=== PATIENT | female | born 1940 | race Caucasian/White ===

== ENCOUNTER → 2016-09-20 | Day surgery (SDC) | payer OTHER ==
[~2016-09-20] VITALS: Ht 162.6 cm; Wt 65.3 kg
[~2016-09-20] MED LIST: ADVAIR HFA 115/1 PUF INH; ASPIRIN CHILDRE81 MG PO; CALCIUM + D 6001 TAB PO; CIPROFLOXACIN500 MG PO; CORDARONE 200M200 MG PO; MIRALAX17 GM PO; PERCOCET 325 MG1 TA2 PO; PREDNISONE 1 MG1 MG PO; SENNA CON/DOCUS1 TAB PO; SPIRIVA 18 MCG18 MCG INH; SYMBICORT 16010.2 GM INH; TAMOXIFEN CITRA20 MG PO; VITAMIN D31000 I1 PO
--- NOTE | 2016-09-24 18:41 | Operative Report ---
Operative/Inv Procedure Report Surgery Date: 09/20/16 Name of Procedure: D&C hysteroscopy Pre-Operative Diagnosis: Postmenopausal bleeding tamoxifen use Post-Operative Diagnosis: Same Estimated Blood Loss: scant Surgeon/Construction Consultant: JENNIFER TOMLINSON MD Anesthesia: moderate sedation Operative/Procedure Note Note: Patient was taken to the operating room placed in dorsal supine position. After adequate anesthesia, patient was prepped and draped for surgery. Examination under anesthesia was performed. CO2 tenaculum was placed on the anterior lip of the cervix gentle downward traction was used. The cervix was dilated 29 Hegar to left insertion of the hysteroscope. Under direct visualization to hysteroscopy was performed using gas hysteroscope was removed and endocervical curettage was performed. And endometrial curettage was performed. All instruments removed from the vagina. The counts were correct the patient was awakened from anesthesia. And transported to recovery room awake and alert. Findings: Atrophic lining no adnexal masses normal size uterus
== END ==
LOC: STS 01:19
DX: N95.0 Postmenopausal bleeding (principal); Z79.810 Long term (current) use of selective estrogen receptor modulators (SERMs); Z85.3 Personal history of malignant neoplasm of breast; I10 Essential (primary) hypertension; J44.9 Chronic obstructive pulmonary disease, unspecified; Z87.891 Personal history of nicotine dependence; Z79.82 Long term (current) use of aspirin
CPT/HCPCS: 88305; J2250

== ENCOUNTER → 2017-10-01 | Day surgery (SDC) | payer OTHER ==
[~2017-10-01] VITALS: Ht 162.6 cm; Wt 64.4 kg
[~2017-10-01] MED LIST changes: +ASPIRIN EC81 M1 PO; +CALCIUM 500 +1 EAC5 PO; +CYCLOBENZAPRINE5 M2 PO; +IBUPROFEN600 M1 PO; +PREDNISONE1 MG PO; -SPIRIVA 18 MCG18 MCG INH; +SPIRIVA18 MCG INH; +TAMOXIFEN CITRA20 M1 PO; -TAMOXIFEN CITRA20 MG PO; +VENTOLIN HFA18 GM INH
--- NOTE | 2017-10-03 10:25 | Operative Report ---
Operative/Inv Procedure Report Surgery Date: 10/01/17 Name of Procedure: cysto: TURBT; Mitomycin bladder instillation in RR Pre-Operative Diagnosis: recurrent bladder cancer Post-Operative Diagnosis: same Estimated Blood Loss: less than 50ml Surgeon/Materials Manager: Toy Solis MD Anesthesia: laryngeal mask airway Drains: 18fr -for mitomycin instillation Specimens: bladder tumor Complications: none Operative/Procedure Note Note: The patient was taken to the operating room, and placed on the OR table in supine position. Timeout was performed, with the patient awake, to confirm correct patient, procedure, anesthesia, antibiotics, and other pertinent gordon- operative information. After adequate anesthesia and antibiotics, the patient was then placed in lithotomy stirrups, draped and prepped in usual surgical fashion. A 26 Malian resectoscope sheath with a 30 angle lens, and 24 Malian loop, was inserted into the urethra, and advanced into the bladder without difficulty. Upon entering the bladder, the bladder was noted to be mildly trabeculated. Both ureteral orifices were in their orthotopic position, with clear reflux bilaterally. A solitary 0.5 Cm papillary lesion was visualized on the left lateral wall of the bladder, consistent with tumor. No other tumors were seen on thorough and systematic surveillance. Under direct visualization, this 0.5 cm papillary lesion was resected from superficial to deeper layers, including partial detrusor muscle base resection. The entire tumor was removed, along with a 0.5 cm margin of normal mucosa. The tumor fragments were evacuated, and sent to pathology. Cauterization of the base of the tumor resection was performed, in order to achieve good hemostasis. The bladder was copiously irrigated once again with 3 L of sorbitol. The resectoscope was removed leaving the bladder full. The bladder was drained by placing a 16 Malian Kruger catheter , without difficulty, and with clear fluid. 10 mL of sterile water was placed in the balloon, and the Kruger catheter was plugged after complete decompression of the bladder. The patient tolerated procedure well was then taken to recovery room in satisfactory condition. In the recovery room, Mitomycin 40mg in 40cc sterile saline, was instilled into the bladder using the indwelling 16fr catheter. The Kruger was clamped, for one hour, with the pt turned from [id number] every 15minutes, during mitomycin instillation. The patient tolerated this part of the procedures well, the catheter was removed for the pt. to void. The patient tolerated both procedures well and discharged withpain meds, and antibiotics. The patient is scheduled for follow-up in the office in 2 weeks time. Discharge Disposition: PACU CC: Toy Solis MD
== END ==
LOC: STS 02:03
DX: C67.2 Malignant neoplasm of lateral wall of bladder (principal); Z85.51 Personal history of malignant neoplasm of bladder; J44.9 Chronic obstructive pulmonary disease, unspecified
CPT/HCPCS: 93005; 93010; J2250; J9280

== ENCOUNTER 2017-12-04 07:01 | Inpatient (IN) | payer OTHER ==
[~2017-12-04] VITALS: Ht 162.6 cm; Wt 66.2 kg
--- NOTE | 2017-12-04 07:17 | ED DYSPNEA/ASTHMA COMPLAINT ---
History of Present Illness General Chief Complaint: Dyspnea (COPD, CHF, Other) Stated Complaint: DIFF BREATHING Source: patient, family, old records, EMS Exam Limitations: no limitations Vital Signs & Intake/Output Vital Signs & Intake/Output Vital Signs Date Time Temp Pulse Resp B/P B/P Pulse O2 O2 Flow FiO2 Mean Ox Delivery Rate 12/04 0753 99.9 120 18 160/70 96 Non 100% ReBreather 12/04 0732 99.6 126 28 155/80 96 Non 10L ReBreather 12/04 0723 95 Non 100% ReBreather Allergies Coded Allergies: NO KNOWN ALLERGIES (NONE 09/30/17) NKA PER ANTIBIOTIC ORDER SHEET OF 01/15/13 - [facility] Reconcile Medications Albuterol Sulfate (Ventolin Hfa) 90 MCG HFA.AER.AD 2 PUF INH Q4-6 PRN PRN SHORTNESS OF BREATH Aspirin (Ecotrin*) 81 MG TABLET.DR 1 TAB PO DAILY HEART/BLOOD (Reported) Budesonide/Formoterol Fumarate (Symbicort 160-4.5 Mcg Inhaler) 160 MCG-4.5 MCG/ ACTUATION HFA.AER.AD 2 PUF INH BID COPD (Reported) Calcium Carbonate/Vitamin D3 (Calcium 500 + D Tablet) (Unknown Strength) TABLET (Unknown Dose) PO DAILY SUPPLEMENT (Reported) Prednisone 1 MG TABLET 4 MG PO DAILY STEROID (Reported) Tamoxifen Citrate 20 MG TABLET 1 TAB PO DAILY BREAST CANCER (Reported) Tiotropium Dundee (Spiriva) 18 MCG CAP.W.DEV 1 CAP INH DAILY COPD (Reported) Triage Nurses Notes Reviewed? yes HPI: Patient presents with increasing shortness of breath since last night. Patient states that she was unable to sleep all night secondary to her breathing. She does not know about orthopnea. She is to recliner and almost upright position for the majority tonight. Patient does not have a history of congestive heart failure. Patient states that yesterday she was running a low-grade fever of 100.4. She's had a productive cough which is slightly worse than her chronic underlying cough. Patient is currently on low-dose steroids secondary to polymyalgia rheumatica. Patient denies any chest pain or palpitations. She does have anorexia. Past History Travel History Traveled to [place] past 21 day No Medical History Any Pertinent Medical History? see below for history Neurological: NONE EENT: NONE Cardiovascular: NONE Respiratory: COPD Gastrointestinal: NONE Hepatic: NONE Renal: NONE Musculoskeletal: NONE, POLYMYALGIA RHEUMATICA Psychiatric: NONE Endocrine: NONE Blood Disorders: NONE Cancer(s): bladder cancer, hx breast ca L '13- lumpectomy, radiation JANITORIAL TECH/Reproductive: NONE Other Medical Hx: PMR History of MRSA: No History of VRE: No History of CDIFF: No Surgical History Surgical History: BLADDER SURG FOR CA Lumpectomy on L side, deviated septum, cataract surgery Psychosocial History Who do you live with Patient/Self Services at Home None What is your primary language [place] Tobacco Use: Quit >30 days ago ETOH Use: denies use Illicit Drug Use: denies illicit drug use Family History Family History, If Any: Relation not specified for: *No pertinent family history Hx Contributory? No Review of Systems Review of Systems Constitutional: Reports: no symptoms. EENTM: Reports: no symptoms. Respiratory: Reports: see HPI, cough, orthopnea, short of breath, wheezing. Cardiovascular: Reports: no symptoms. GI: Reports: see HPI (ANOREXIA). Genitourinary: Reports: no symptoms. Musculoskeletal: Reports: no symptoms. Skin: Reports: no symptoms. Neurological/Psychological: Reports: see HPI, anxiety. Hematologic/Endocrine: Reports: no symptoms. Immunologic/Allergic: Reports: no symptoms. All Other Systems: Reviewed and Negative Physical Exam Physical Exam General Appearance: well developed/nourished, alert, awake, anxious, severe distress Head: atraumatic, normal appearance Eyes: Bilateral: PERRL, EOMI. Ears, Nose, Throat: normal pharynx, normal ENT inspection, hearing grossly normal Neck: normal inspection, supple, full range of motion, JVD Respiratory: decreased breath sounds, accessory muscle use, wheezing, rales, respiratory distress Cardiovascular: regular rate/rhythm, normal peripheral pulses Gastrointestinal: normal bowel sounds, soft, non-tender, no organomegaly Extremities: normal inspection, normal capillary refill, normal range of motion, no edema Neurologic/Psych: no motor/sensory deficits, awake, alert, oriented x 3, normal mood/affect Skin: intact, normal color, warm/dry Lymphatic: no anterior cervical riri Core Measures ACS in differential dx? No CVA/TIA Diagnosis No Sepsis Present: No Sepsis Focused Exam Completed? No Progress Differential Diagnosis: asthma, AMI, bronchitis, CHF, COPD, pulmonary embolism, pneumonia, pneumothorax Plan of Care: Orders Procedure Date/time Status Heart Healthy Diet 12/04 L Active LACTIC ACID 12/04 1015 Active ED Holding Orders 12/05 827 Active Admit to inpatient 12/05 827 Active Vital Signs 12/05 827 Active Code Status 12/05 827 Active ARTERIAL BLOOD GAS (GEN) 12/04 714 Active Telemetry/Systems Mgr 12/04 714 Active BLOOD CULTURE 12/04 714 Active URINALYSIS 12/04 714 Active TROPONIN LEVEL 12/04 714 Complete LACTIC ACID 12/04 714 Complete COMPREHENSIVE METABOLIC PANEL 12/04 714 Complete CBC WITHOUT DIFFERENTIAL 12/04 714 Complete B-TYPE NATRIURETIC PEP (BNP) 12/04 714 Complete EKG 12/05 703 Active Laboratory Tests 12/04/17715: Anion Gap 8, Estimated GFR > 60, BUN/Creatinine Ratio 21.1, Glucose 139 H, Lactic Acid 1.1, Calcium 9.5, Total Bilirubin 0.5, AST 34, ALT 37, Alkaline Phosphatase 72, Troponin I < 0.01, Lik-N-Wcsuwifwcpv Pept 360 H, Total Protein 6.8, Albumin 3.9, Globulin 2.9, Albumin/Globulin Ratio 1.3, CBC w Diff MAN DIFF ORDERED, RBC 5.16, MCV 87.2, MCH 29.5, MCHC 33.8, RDW 13.9, MPV 7.0 L, Gran % 74.2, Lymphocytes % 19.4 L, Monocytes % 5.4, Eosinophils % 0.7, Basophils % 0.3 , Absolute Granulocytes 12.6 H, Segmented Neutrophils 81 H, Absolute Lymphocytes 3.3, Lymphocytes 13 L, Monocytes 6, Absolute Monocytes 0.9 H, Absolute Eosinophils 0.1, Absolute Basophils 0, Platelet Estimate VERIFIED BY SMEAR, Normocytic RBCs VERIFIED, Normochromic RBCs VERIFIED 12/04/17714: pH 7.34 L, pCO2 43, pO2 88, HCO3 22, ABG O2 Sat (Measured) 94.0 L, P-50 (Temp Corrected) N, Carboxyhemoglobin 1.2 L, O2 Concentration % 7L, O2 Delivery Method NEB TX, Phlebotomy Draw Site LEFT RADIAL Microbiology 12/04 724 BLOOD: Blood Culture - RECD 12/04 709 BLOOD: Blood Culture - RECD Diagnostic Imaging: Viewed by Me: Radiology Read. Discussed w/RAD: Radiology Read. CXR Impression: PATIENT: JAD RILEY PRESENT AGE: 77 PATIENT ACCOUNT NO: [id number] : 40 LOCATION: [facility] ORDERING PHYSICIAN: Rafa King MD SERVICE DATE: 12/04/17 EXAM TYPE: RAD - XRY-PORTABLE CHEST XRAY EXAMINATION: XR PORTABLE CHEST CLINICAL INFORMATION: Pulmonary edema versus pneumonia COMPARISON: 05/30/2017 TECHNIQUE: Portable frontal view of the chest was obtained. FINDINGS: Cardiac leads overlie the chest. The lungs are well expanded. Oligemia of the upper lungs is consistent with known emphysema. There is no focal consolidation, edema, or effusion. Focal opacity at the peripheral right lung base likely associated with calcification of the costochondral cartilage as seen on prior CT. No pneumothorax. The cardiomediastinal silhouette is within normal limits. No acute osseous abnormality. IMPRESSION: There is known emphysema. No edema. No consolidation. DICTATED BY: Alexandre Dupree MD DATE/TIME DICTATED:12/04/17751 EDITOR:DANIKA DATE/TIME TRANSCRIBED:12/04/17751 CONFIDENTIAL, DO NOT COPY WITHOUT APPROPRIATE AUTHORIZATION. <Electronically signed in Other Vendor System> SIGNED BY: Alexandre Dupree MD 12/04/17756 Initial ED EKG: sINUS TACHYCARDIA AT 126, NONSPECIFIC st-t CHANGES NOTED CHANGES EXCEPT FOR RATE FROM PRIOR ekg. Prior EKG: unchanged Rhythm Strip: sinus tachycardia Comments: The ABGs was no evidence of hypercarbic respiratory failure she is slightly hypoxic given the amount of oxygen she is on. Holding off On aggressive hydration given the fact that she has had orthopnea and she has rales on exam. Awaiting the chest x-ray and the BNP. Departure Departure Disposition: STILL A PATIENT Condition: Fair Clinical Impression Primary Impression: COPD exacerbation Referrals: Dilip HAIDER,Reddy Alaniz (PCP/Family) Departure Forms: Customer Survey General Discharge Information Admission Note Spoke With: Nina Ellsworth MD Documentation of Exam: Documentation of any treatments & extenuating circumstances including Concerns Regarding Discharge (functional status, medication knowledge or non-compliance, living conditions, etc.) that warrant an admission rather than observation: [IV antibiotics, IV steroids, pulmonary consultation, respiratory treatments, nebulizers, if patient becomes fatigued she may require BiPAP] Critical Care Note Critical Care Note Critical Care Time: mins: (90 MIN)
[2017-12-04 07:24] LABS: ABSOLUTE BASOPHIL COUNT 0 /CUMM (0.0-0.2); ABSOLUTE EOSINOPHIL COUNT 0.1 /CUMM (0.0-0.7); ABSOLUTE GRANULOCYTE CT 12.6 /CUMM (1.4-6.5); ABSOLUTE LYMPH COUNT 3.3 /CUMM (1.2-3.4); ABSOLUTE MONOCYTE COUNT 0.9 /CUMM (0.10-0.60); BASOPHIL % 0.3 % (0.0-2.0); EOSINOPHIL % 0.7 % (0-5); GRANULOCYTE % 74.2 % (42.2-75.2); HEMATOCRIT 44.9 % (37-47); MEAN CORPUSCULAR HGB 29.5 PG (27.0-31.0); MEAN CORPUSCULAR HGB CONC 33.8 G/DL (33.0-37.0); MEAN CORPUSCULAR VOLUME 87.2 FL (81.0-99.0); PLATELET COUNT 375 /CUMM (130-400); RBC DISTRIBUTION WIDTH 13.9 % (11.5-14.5); RED BLOOD CELL CT 5.16 /CUMM (4.20-5.40); WHITE BLOOD CELL COUNT 16.9 /CUMM (4.8-10.8)
--- NOTE | 2017-12-04 07:57 | RADIOLOGY REPORT ---
EXAMINATION: XR PORTABLE CHEST CLINICAL INFORMATION: Pulmonary edema versus pneumonia COMPARISON: 05/30/2017 TECHNIQUE: Portable frontal view of the chest was obtained. FINDINGS: Cardiac leads overlie the chest. The lungs are well expanded. Oligemia of the upper lungs is consistent with known emphysema. There is no focal consolidation, edema, or effusion. Focal opacity at the peripheral right lung base likely associated with calcification of the costochondral cartilage as seen on prior CT. No pneumothorax. The cardiomediastinal silhouette is within normal limits. No acute osseous abnormality. IMPRESSION: There is known emphysema. No edema. No consolidation.
--- NOTE | 2017-12-04 08:48 | History & Physical ---
Phoebe Arcos 12/04/17 0847: General Information and HPI MD Statement: I have seen and personally examined JAD KEYS and documented this H &P. The patient is a 77 year old F who presented with a patient stated chief complaint of [sob]. Source of Information: patient Exam Limitations: no limitations History of Present Illness: Mrs Keys is a 77-year-old female with past medical history of polymyalgia rheumatica on chronic prednisone, COPD not on home oxygen, bladder cancer status post resection 2 and currently on mitomycin (6 out of 8 shots given), prior history of breast cancer status post lumpectomy and radiation on tamoxifen came in today with chief complaint of worsening shortness of breath the night prior to presentation. Apparently, she was having some symptoms of cold and cough since 2 days prior to today's presentation, she had congestion in her nose along with some irritation in the ear and and headache, however the night prior to admission she started to have worsening shortness of breath after awakening from sleep, she tried her inhalers but they did not help and this is when she was brought in by ambulance to [facility] emergency department. On arrival her saturations were found to be 70 %, initially she was placed on 10 L, however then she was shortly placed on nonrebreather for a while. She denied any orthopnea, paroxysmal nocturnal dyspnea, edema, productive cough, any sick contacts, nausea, vomiting, diarrhea, constipation. She did report having low-grade fever the night prior to presentation and she measured to be 100.4. Of note she is on low-dose steroids for polymyalgia rheumatica. Allergies/Medications Allergies: Coded Allergies: NO KNOWN ALLERGIES (NONE 09/30/17) NKA PER ANTIBIOTIC ORDER SHEET OF 01/15/13 - [facility] Home Med list Albuterol Sulfate (Ventolin Hfa) 90 MCG HFA.AER.AD 2 PUF INH Q4-6 PRN PRN SHORTNESS OF BREATH Aspirin (Ecotrin*) 81 MG TABLET.DR 1 TAB PO DAILY HEART/BLOOD (Reported) Budesonide/Formoterol Fumarate (Symbicort 160-4.5 Mcg Inhaler) 160 MCG-4.5 MCG/ ACTUATION HFA.AER.AD 2 PUF INH BID COPD (Reported) Calcium Carbonate/Vitamin D3 (Calcium 500 + D Tablet) (Unknown Strength) TABLET (Unknown Dose) PO DAILY SUPPLEMENT (Reported) Prednisone 1 MG TABLET 1 MG PO DAILY STEROID (Reported) Tamoxifen Citrate 20 MG TABLET 1 TAB PO DAILY BREAST CANCER (Reported) Tiotropium [place] (Spiriva) 18 MCG CAP.W.DEV 1 CAP INH DAILY COPD (Reported) Compliance With Home Meds: FAIR Past History Travel History Traveled to [place] past 21 day No Medical History Neurological: NONE EENT: NONE Cardiovascular: NONE Respiratory: COPD Gastrointestinal: NONE Hepatic: NONE Renal: NONE Musculoskeletal: NONE, POLYMYALGIA RHEUMATICA Psychiatric: NONE Endocrine: NONE Blood Disorders: NONE Cancer(s): bladder cancer, hx breast ca L '13- lumpectomy, radiation BUSINESS REPORTING DEVELOPER/Reproductive: NONE Other Medical Hx: PMR History of MRSA: No History of VRE: No History of CDIFF: No Surgical History Surgical History: BLADDER SURG FOR CA Lumpectomy on L side, deviated septum, cataract surgery ECHO Results (as available) Date of last Echo 09/24/14 EF% 60 Past Family/Social History Family History Relations & Conditions if any Relation not specified for: *No pertinent family history Psychosocial History Where do you live? Home Who Do You Live With? self Services at Home: None Primary Language: Turkish Smoking Status: Former Smoker ETOH Use: occasional use Illicit Drug Use: denies illicit drug use Functional Ability ADLs Independent: dressing, eating, toileting, bathing. Ambulation: independent IADLs Independent: shopping, housework, finances, food prep, telephone, transportation , medication admin. Review of Systems Review of Systems Constitutional: Reports: see HPI. EENTM: Denies: blurred vision, double vision, visual changes, eye pain. Cardiovascular: Reports: orthopena. Denies: chest pain, edema, palpitations, peripheral edema, syncope. Respiratory: Reports: short of breath, sputum production, wheezing. Denies: cough, hemoptysis, stridor. GI: Denies: abdominal pain, bloating, constipation, diarrhea. Genitourinary: Denies: discharge, dysuria, frequency, hematuria. Musculoskeletal: Reports: no symptoms. Exam & Diagnostic Data Last 24 Hrs of Vital Signs/I&O Vital Signs Date Time Temp Pulse Resp B/P B/P Pulse O2 O2 Flow FiO2 Mean Ox Delivery Rate 12/04 0900 99.0 102 24 111/51 96 Non 10L ReBreather 12/04 0753 99.9 120 18 160/70 96 Non 10L ReBreather 12/04 0732 99.6 126 28 155/80 96 Non 10L ReBreather 12/04 0723 95 Non 100% ReBreather Intake & Output 12/04 1600 12/04 0800 12/04 0000 Intake Total Output Total Balance Patient 64.41 kg Weight Weight Reported by Patient Measurement Method Physical Exam General Appearance Alert, Oriented X3, Cooperative Skin No Rashes, No Breakdown, multiple small pinkish macules over b/l hands, chronic HEENT Atraumatic, PERRLA, EOMI Neck Supple, No JVD, mild redness noted in orpharynx Cardiovascular Regular Rate, Normal S1, Normal S2, No Murmurs Lungs Clear to Auscultation, Normal Air Movement Abdomen Normal Bowel Sounds, Soft, No Tenderness Extremities No Clubbing, No Cyanosis, No Edema, Normal Pulses Vascular Normal Pulses Last 24 Hrs of Labs/[place]: Laboratory Tests 12/04/17 0716: Anion Gap 8, Estimated GFR > 60, BUN/Creatinine Ratio 21.1, Glucose 139 H, Lactic Acid 1.1, Calcium 9.5, Total Bilirubin 0.5, AST 34, ALT 37, Alkaline Phosphatase 72, Troponin I < 0.01, Wzi-G-Quzngenuajw Pept 360 H, Total Protein 6.8, Albumin 3.9, Globulin 2.9, Albumin/Globulin Ratio 1.3, CBC w Diff MAN DIFF ORDERED, RBC 5.16, MCV 87.2, MCH 29.5, MCHC 33.8, RDW 13.9, MPV 7.0 L, Gran % 74.2, Lymphocytes % 19.4 L, Monocytes % 5.4, Eosinophils % 0.7, Basophils % 0.3 , Absolute Granulocytes 12.6 H, Segmented Neutrophils 81 H, Absolute Lymphocytes 3.3, Lymphocytes 13 L, Monocytes 6, Absolute Monocytes 0.9 H, Absolute Eosinophils 0.1, Absolute Basophils 0, Platelet Estimate VERIFIED BY SMEAR, Normocytic RBCs VERIFIED, Normochromic RBCs VERIFIED 12/04/17714: pH 7.34 L, pCO2 43, pO2 88, HCO3 22, ABG O2 Sat (Measured) 94.0 L, P-50 (Temp Corrected) N, Carboxyhemoglobin 1.2 L, O2 Concentration % 7L, O2 Delivery Method NEB TX, Phlebotomy Draw Site LEFT RADIAL Microbiology 12/04 724 BLOOD: Blood Culture - RECD 12/04 709 BLOOD: Blood Culture - RECD Diagnostic Data EKG Results Sinus tachycardia, rate of 126, QTC of 452. CXR Results chest x-ray showed known emphysema however no overt edema or consolidation was seen. Assessment/Plan Assessment: In summary Mrs Keys is a 77-year-old female with past medical history of polymyalgia rheumatica on chronic prednisone, COPD not on home oxygen, bladder cancer status post resection 2 and currently on mitomycin (6 out of 8 shots given), prior history of breast cancer status post lumpectomy and radiation on tamoxifen came in today with chief complaint of worsening shortness of breath the night prior to presentation. Her vitals on presentation were T-max of 99.6, heart rate of 126, blood pressure 155/80, she was saturating 96% on nonrebreather. White count of 16.9, H/H of 15.2/44.9, platelet 375. Sodium of 135, potassium 4.7, BUN/creatinine 19/0.9, glucose of 139, liver function tests within normal limits, troponin I negative, lactic acid less than 2, calcium of 9.5 proBNP of 360. Chest x-ray did not show any acute cardiopulmonary process other than previous emphysema. EKG showed sinus tachycardia with a rate of 126. Initially when she presented she was hypoxic to 70%, which gradually improved after placing her on nonrebreather after initial high flow oxygen. We will admit her to cardiac telemetry floor for further management of her COPD exacerbation and continuous pulse oximetry. Problem list along with assessment and plan. 1. Acute hypoxic failure secondary to COPD exacerbation. * Continue to monitor vitals, continue oxygen to maintain saturations above 92%, [facility] evaluation, she received IV methylprednisolone while at the emergency department, continue IV methylprednisolone 40 mg every 6, she received 1 time of IV ceftriaxone and azithromycin, can continue azithromycin for 2 more days, please send sputum cultures if she is able to bring up cough, continue cardiac telemetry monitoring, continue chest physical therapy, continue spirometry. 2. Leucocytosis * Most likely seems to be secondary to chronic steroid therapy * She is afebrile, chest x-ray is negative for any findings of pneumonia, vitals are stable other than tachycardia which could be secondary to her COPD and nebulization treatment itself. * For now we will continue to follow the white count, blood culture and sputum cultures, if any overt signs of infection develop, then will consider draining it, currently continue azithromycin for COPD exacerbation. 3. history of bladder cancer on mitomycin * Received 6 out of 8 total doses. * Had another appointment today for next dose of mitomycin, has tolerated chemotherapy well previously. 4. History of breast cancer status post lumpectomy/radiation. * Continue tamoxifen 5. history of polymyalgia rheumatica * And is currently on IV methylprednisolone for COPD exacerbation. * On discharge continue home dose of chronic prednisone. * Follows with Dr. Benavides at the outpatient 6. Continue aspirin at home dosage Full code. Heart healthy diet. Pain pathway. DVT prophylaxis with Lovenox. As Ranked By This Provider Problem List: 1. COPD exacerbation Core Measures/Misc (12/30) Acute Coronary Syndrome ACS Diagnosis: No Congestive Heart Failure Congestive Heart Failure Diagnosis No Cerebrovascular Accident CVA/TIA Diagnosis: No VTE (View Protocol) VTE Risk Factors No risk factors No Mechanical VTE Prophylaxis d/t Other No VTE Pharm Prophylaxis d/t Other Sepsis (View protocol) Sepsis Present: No If YES complete Sepsis Event Note If YES complete Sepsis Event Note Sree Davis MD 12/04/17 1156: Core Measures/Misc (12/30) Sepsis (View protocol) If YES complete Sepsis Event Note If YES complete Sepsis Event Note Attending MD Review Statement Attending Statement Attending MD Statement: examined this patient, discuss w/resident/PA/TOMBSTONE ERECTOR HELPER, agreed w/resident/PA/TOMBSTONE ERECTOR HELPER, reviewed EMR data (avail) Attending Assessment/Plan: 77F PMH polymyalgia rheumatica on chronic prednisone, COPD not on home oxygen, bladder cancer status post resection 2 and currently on mitomycin (6 out of 8 shots given), prior history of breast cancer status post lumpectomy and radiation on tamoxifen presenting with 2 days of URI symptoms leading to severe shortness of breath on arrival to ER, required NRB mask, given nebulizers and steroids with improvement. Now breathing quietly and comfortably on 2L, feels much better, still wheezing, CXR negative, no evidence of CHF. 1. COPD Exacerbation 2. Acute bronchitis 3. Acute hypoxemic respiratory failure Plan - Admit to general medicine - Solumedrol 40mg q8h - Nebulizer treatments - Sputum culture - Titrate down oxygen as tolerated - Continue home medications - DVT PPx
--- NOTE | 2017-12-04 11:34 | PN- Housestaff ---
Subjective Follow-up For: COPD exacerbation, Acute hypoxic respiratory failure, Review of Systems Constitutional: Reports: see HPI. Assessment/Plan Assessment: 77-year-old female with past medical history of polymyalgia rheumatica(on prednisone), COPD, bladder cancer status post resection and on mitomycin, prior history of breast cancer status post lumpectomy and radiation(currently on tamoxifen) presented emergency department with chief complaint of worsening shortness of breath since one day. At the time of presentation to the emergency department her vitals, T: 99.6, HR: 126, BP: 155/80, SaO2: 96% on nonrebreather, Her labs were significant for for WBC:16.9, Hb/Hct:15.2/46.9, Platlets 375, LFTs are with normal limit, BEP is WNML. Chest X-ray: showing no new changes same previous emphysematous changes. EKG:sinus tachycardai Problems list: *Acute hypoxic respiratory failure secondary to COPD exacerbation: *Leukocytosis *Hx of bladder cancer *Hx of Polymyalgia rheumatica/ Hx of braest cancer post lumpectomy on raloxafen *Acute hypoxic failure secondary to COPD exacerbation
[2017-12-04 15:48] VITALS: BP 160/72
[2017-12-04 21:34] VITALS: BP 138/68
[2017-12-05 05:52] VITALS: BP 120/64
--- NOTE | 2017-12-05 07:09 | PN- Housestaff ---
Marcus Vazquez 12/05/17 0709: Subjective Follow-up For: COPD Exacerbation Tachycardia Subjective: She is currently on 5L oxygen. No events overnight and no events on telemetry. She denies any new complaints. Looks to be in mild distress from her respiratory rate. Review of Systems Constitutional: Reports: see HPI. Objective Last 24 Hrs of Vital Signs/I&O Vital Signs Date Time Temp Pulse Resp B/P B/P Pulse O2 O2 Flow FiO2 Mean Ox Delivery Rate 12/06 0131 94 Nasal 60% Cannula 12/05 2245 94 Nasal 55% Cannula 12/05 2200 Nasal 55% Cannula 12/05 2139 97.9 92 22 128/58 96 Nasal Cannula 12/05 2036 94 Nasal 55% Cannula 12/05 1710 95 Nasal 55% Cannula 12/05 1449 98.7 106 24 138/64 92 Nasal 5.0L Cannula 12/05 0819 92 Nasal 5.0L Cannula 12/05 0800 Nasal 5.0L Cannula 12/05 0552 97.9 90 22 120/64 90 Nasal 4.0L Cannula Intake & Output 12/06 0800 12/06 0000 12/05 1600 Intake Total 300 535 Output Total 400 Balance 300 135 Intake, IV 35 Intake, Oral 300 500 Output, Urine 400 Physical Exam General Appearance: Alert, Oriented X3, Cooperative, Mild Distress Skin: erythematic Skin Temp/Moisture Exam: Warm/Dry HEENT: Atraumatic, EOMI Neck: Supple, No JVD Cardiovascular: Regular Rate, Normal S1, Normal S2 Lungs: Clear to Auscultation, Decreased sounds Abdomen: Normal Bowel Sounds, Soft, No Tenderness Assessment/Plan Assessment: Mrs Keys is a 77-year-old female with past medical history of polymyalgia rheumatica on chronic prednisone, COPD not on home oxygen, bladder cancer status post resection 2 and currently on mitomycin (6 out of 8 shots given), prior history of breast cancer status post lumpectomy and radiation on tamoxifen. Presented to ED with chief complaint of worsening shortness of breath the night prior to presentation. Apparently, she was having some symptoms of cold and cough since 2 days prior to today's presentation along with congestion in her nose, irritation in the ear, and headache. She tried her inhalers but they did not help and was BIBA to [facility] emergency department. On arrival her saturations were found to be 70%, initially she was placed on 100% Fi O2. #COPD Exacerabtion - Pulmonary recs appreciated - Solumedrol Q8 - DuoNeb Q6 - Hold Symbicrot and Spiriva - Change Steroids to 60mg prednisone tmrw - DC Azithromycin - Cont IV ceftriaxone (recommended abx for her stage of COPD exacerbation with suspected bacterial etiology) #Tachycardia - Check D Dimer to R/O PE - Check lower ext BL doppler - Resolved #Leukocytosis - Most likely related to chronic steroid use for PMR DVT ppx Full code Problem List: 1. COPD exacerbation Pain Ratin Pain Location: na Pain Goal: Remain pain free Pain Plan: per pathway Tomorrow's Labs & Rationales: CBC, BEP Selam HAIDER,Melba 12/05/17 1110: Attending MD Review Statement Attending Statement Attending MD Statement: examined this patient, discuss w/resident/PA/COMMUNICATIONS ENGINEERING TECHNICIAN, agreed w/resident/PA/COMMUNICATIONS ENGINEERING TECHNICIAN, reviewed EMR data (avail), discussed with nursing, discussed with case mgmt, amended to note Attending Assessment/Plan: Patient seen and examined. Initially admitted to the general medical floor but transferred to telemetry unit on account of tachycardia. Likely related to her COPD flareup. She reports feeling better compared to presentation but still visibly short of breath at rest. She was on 100% FiO2 on presentation but has been weaned down gradually to 5 L of oxygen via nasal cannula. She denies chest pain or palpitations. On examination no use of accessory muscles. She has fair entry bilaterally with diffuse rhonchi. Heart sounds are regular. Abdomen soft and nontender. No peripheral edema. Problems: 1. Acute hypoxic respiratory failure 2. COPD exacerbation 3. Tachycardia Plan: -Oxygen requirement is improving. Continue bronchodilator therapy. Continues Solu-Medrol. Decrease dose down to every 8 hours. Pulmonary consultation. -Mobilize patient as tolerated. -Tachycardia has resolved. Discontinue telemetry monitoring. -Check d-dimer. If elevated given a history of malignancy will consider CT angiogram in addition to rule out pulmonary embolism given the degree of her hypoxemia on presentation. -Leukocytosis on presentation was likely related to her chronic steroid therapy. -Repeat serum chemistry and CBCs in a.m. if there is a change in her clinical status. status.
[2017-12-05 08:09] LABS: ABSOLUTE BASOPHIL COUNT 0 /CUMM (0.0-0.2); ABSOLUTE EOSINOPHIL COUNT 0 /CUMM (0.0-0.7); ABSOLUTE GRANULOCYTE CT 14.3 /CUMM (1.4-6.5); ABSOLUTE LYMPH COUNT 0.8 /CUMM (1.2-3.4); ABSOLUTE MONOCYTE COUNT 0.1 /CUMM (0.10-0.60); BASOPHIL % 0 % (0.0-2.0); EOSINOPHIL % 0 % (0-5); HEMATOCRIT 42.1 % (37-47); MEAN CORPUSCULAR HGB 29.2 PG (27.0-31.0); MEAN CORPUSCULAR HGB CONC 33.2 G/DL (33.0-37.0); MEAN CORPUSCULAR VOLUME 87.9 FL (81.0-99.0); MEAN PLATELET VOLUME 7.6 FL (7.4-10.4); PLATELET COUNT 338 /CUMM (130-400); RBC DISTRIBUTION WIDTH 14.1 % (11.5-14.5); RED BLOOD CELL CT 4.79 /CUMM (4.20-5.40); WHITE BLOOD CELL COUNT 15.3 /CUMM (4.8-10.8)
[2017-12-05 09:19] LABS: GRANULOCYTE % 93.9 % (42.2-75.2)
--- NOTE | 2017-12-05 13:58 | Cons- Pulmonary ---
General Information and HPI Consulting Request Date of Consult: 12/05/17 Requested By: med team History of Present Illness: Mrs Keys is a 77-year-old female with past medical history of polymyalgia rheumatica on chronic prednisone, COPD not on home oxygen, bladder cancer status post resection 2 and currently on mitomycin (6 out of 8 shots given), prior history of breast cancer status post lumpectomy and radiation on tamoxifen came in today with chief complaint of worsening shortness of breath the night prior to presentation. Apparently, she was having some symptoms of cold and cough since 2 days prior to today's presentation, she had congestion in her nose along with some irritation in the ear and and headache, however the night prior to admission she started to have worsening shortness of breath after awakening from sleep, she tried her inhalers but they did not help and this is when she was brought in by ambulance to [place] emergency department. On arrival her saturations were found to be 70 %, initially she was placed on 10 L, however then she was shortly placed on nonrebreather for a while. She denied any orthopnea, paroxysmal nocturnal dyspnea, edema, productive cough, any sick contacts, nausea, vomiting, diarrhea, constipation. She did report having low-grade fever the night prior to presentation and she measured to be 100.4. Of note she is on low-dose steroids for polymyalgia rheumatica. Allergies/Medications Allergies: Coded Allergies: NO KNOWN ALLERGIES (NONE 09/30/17) NKA PER ANTIBIOTIC ORDER SHEET OF 01/15/13 - [facility] Home Med List: Albuterol Sulfate (Ventolin Hfa) 90 MCG HFA.AER.AD 2 PUF INH Q4-6 PRN PRN SHORTNESS OF BREATH Aspirin (Ecotrin*) 81 MG TABLET.DR 1 TAB PO DAILY HEART/BLOOD (Reported) Budesonide/Formoterol Fumarate (Symbicort 160-4.5 Mcg Inhaler) 160 MCG-4.5 MCG/ ACTUATION HFA.AER.AD 2 PUF INH BID COPD (Reported) Calcium Carbonate/Vitamin D3 (Calcium 500 + D Tablet) (Unknown Strength) TABLET (Unknown Dose) PO DAILY SUPPLEMENT (Reported) Prednisone 1 MG TABLET 1 MG PO DAILY STEROID (Reported) Tamoxifen Citrate 20 MG TABLET 1 TAB PO DAILY BREAST CANCER (Reported) Tiotropium [place] (Spiriva) 18 MCG CAP.W.DEV 1 CAP INH DAILY COPD (Reported) Review of Systems Review of Systems Constitutional: Reports: see HPI. Past History Travel History Traveled to [place] past 21 day No Medical History Neurological: NONE EENT: NONE Cardiovascular: NONE Respiratory: COPD Gastrointestinal: NONE Hepatic: NONE Renal: NONE Musculoskeletal: NONE, POLYMYALGIA RHEUMATICA Psychiatric: NONE Endocrine: NONE Blood Disorders: NONE Cancer(s): bladder cancer, hx breast ca L '13- lumpectomy, radiation GEOSCIENCE SPECIALIST/Reproductive: NONE Other Medical Hx: PMR Surgical History Surgical History: BLADDER SURG FOR CA Lumpectomy on L side, deviated septum, cataract surgery Family History Relations & Conditions If Any: Relation not specified for: *No pertinent family history Psychosocial History Where Do You Live? Home Who Do You Live With? self Services at Home: None Primary Language: Icelandic Smoking Status: Former Smoker ETOH Use: occasional use Illicit Drug Use: denies illicit drug use Functional Ability ADLs Independent: dressing, eating, toileting, bathing. Ambulation: independent IADLs Independent: shopping, housework, finances, food prep, telephone, transportation , medication admin. ECHO Results (as available) Date of last Echo 09/24/14 EF% 60 Exam & Diagnostic Data Last 24 Hrs of Vital Signs/I&O Vital Signs Date Time Temp Pulse Resp B/P B/P Pulse O2 O2 Flow FiO2 Mean Ox Delivery Rate 12/05 0819 92 Nasal 5.0L Cannula 12/05 0552 97.9 90 22 120/64 90 Nasal 4.0L Cannula 12/05 0000 Nasal 4.0L Cannula 12/04 2134 97.7 94 22 138/68 93 Nasal Cannula 12/04 2050 Nasal 4.0L Cannula 12/04 1600 Nasal 2.0L Cannula 12/04 1548 97.7 92 20 160/72 94 Nasal Cannula 12/04 1449 97.8 101 22 163/74 94 Nasal 4.0L Cannula Intake & Output 12/05 1600 12/05 0800 12/05 0000 Intake Total 120 300 Output Total 200 Balance -80 300 Intake, Oral 120 300 Number 0 Bowel Movements Output, Urine 200 Patient 146 lb 148 lb Weight Weight Bed scale Bed scale Measurement Method Last 48 Hrs of Labs/Sreedhar: Laboratory Tests 12/05/17 1040: D-Dimer High Sensitivty < 200 12/05/17 0607: Anion Gap 7, Estimated GFR > 60, BUN/Creatinine Ratio 31.1 H, CBC w Diff NO MAN DIFF REQ, RBC 4.79, MCV 87.9, MCH 29.2, MCHC 33.2, RDW 14.1, MPV 7.6, Gran % 93.9 H, Lymphocytes % 5.3 L, Monocytes % 0.8 L, Eosinophils % 0, Basophils % 0, Absolute Granulocytes 14.3 H, Absolute Lymphocytes 0.8 L, Absolute Monocytes 0.1, Absolute Eosinophils 0, Absolute Basophils 0 12/04/17 1445: Urine Color YEL, Urine Clarity HAZY H, Urine pH 6.0, Ur Specific [place] >= 1.030, Urine Protein 30 H, Urine Ketones 15 H, Urine Nitrite NEG, Urine Bilirubin NEG, Urine Urobilinogen 0.2, Ur Leukocyte Esterase SMALL H, Ur Microscopic SEDIMENT EXAMINED, Urine RBC 15-25 H, Urine WBC 25-50 H, Ur Epithelial Cells FEW, Urine Bacteria FEW H, Urine Hemoglobin MOD H, Urine Glucose NEG 12/04/17 1015: Lactic Acid Cancelled 12/04/17 0716: Anion Gap 8, Estimated GFR > 60, BUN/Creatinine Ratio 21.1, Glucose 139 H, Lactic Acid 1.1, Calcium 9.5, Total Bilirubin 0.5, AST 34, ALT 37, Alkaline Phosphatase 72, Troponin I < 0.01, Tce-M-Vdqnnkqslou Pept 360 H, Total Protein 6.8, Albumin 3.9, Globulin 2.9, Albumin/Globulin Ratio 1.3, CBC w Diff MAN DIFF ORDERED, RBC 5.16, MCV 87.2, MCH 29.5, MCHC 33.8, RDW 13.9, MPV 7.0 L, Gran % 74.2, Lymphocytes % 19.4 L, Monocytes % 5.4, Eosinophils % 0.7, Basophils % 0.3 , Absolute Granulocytes 12.6 H, Segmented Neutrophils 81 H, Absolute Lymphocytes 3.3, Lymphocytes 13 L, Monocytes 6, Absolute Monocytes 0.9 H, Absolute Eosinophils 0.1, Absolute Basophils 0, Platelet Estimate VERIFIED BY SMEAR, Normocytic RBCs VERIFIED, Normochromic RBCs VERIFIED 12/04/17 0715: pH 7.34 L, pCO2 43, pO2 88, HCO3 22, ABG O2 Sat (Measured) 94.0 L, P-50 (Temp Corrected) N, Carboxyhemoglobin 1.2 L, O2 Concentration % 7L, O2 Delivery Method NEB TX, Phlebotomy Draw Site LEFT RADIAL Assessment/Plan Impression/Plan: CXR sig copd General Appearance Alert, Oriented X3, Cooperative Skin No Rashes, No Breakdown, multiple small pinkish macules over b/l hands, chronic HEENT Atraumatic, PERRLA, EOMI Neck Supple, No JVD, mild redness noted in orpharynx Cardiovascular Regular Rate, Normal S1, Normal S2, No Murmurs Lungs bilateral wheezing with prolonged expiration Abdomen Normal Bowel Sounds, Soft, No Tenderness Extremities No Clubbing, No Cyanosis, No Edema, Normal Pulses Vascular Normal Pulses Mrs Keys is a 77-year-old female with past medical history of polymyalgia rheumatica on chronic prednisone, [id number] smoker quit few years ago with COPD not on home oxygen, bladder cancer status post resection 2 and currently on mitomycin (6 out of 8 shots given), prior history of breast cancer status post lumpectomy and radiation on tamoxifen Issues include * Acute COPD exacerbation in the lady with severe COPD radiologically and by history, leukocytosis with yellow-green sputum. Patient is on chronic steroids for polymyalgia rheumatica and she desires for Pseudomonas however no prior history suggestive of that. * Polymyalgia rheumatica on steroids hence immunosuppressed * Recent bladder malignancy, previous breast cancer on hormonal therapy with no clinical evidence suggestive of any pulmonary metastasis or malignancy so far. Prior CAT scan unremarkable for any malignancy other than emphysema. No clinical evidence suggestive of venous thromboembolism * Significant osteopenia * 3 mm lung nodule seen few months ago needs follow-up in a year in May 2018 RECOMMENDATION Continue nebulizer therapy with DuoNeb [id number] every 6 hours Hold off on Symbicort and Spiriva for now Change steroids to 60 mg prednisone tomorrow Continue IV ceftriaxone Check lower extremity Doppler and d-dimer We will follow closely Consult Acknowledgment - Thank you for your consult request.
[2017-12-05 14:49] VITALS: BP 138/64
--- NOTE | 2017-12-05 19:03 | ULTRASOUND REPORT ---
EXAMINATION: US TRIPLEX OF LOWER EXTREMITIES, BILATERAL CLINICAL INFORMATION: Hypoxia. COMPARISON: None TECHNIQUE: Color-flow triplex imaging with spectral analysis and compression Doppler were performed on the lower extremities. FINDINGS: Respiratory variation, normal compression and augmented flow are noted throughout the lower extremities. The visualized common femoral vein, superficial femoral vein, profunda femoral vein, popliteal vein and midcalf peroneal and posterior tibial venous segments show no evidence of deep venous thrombosis. There is no Reyes's cyst. IMPRESSION: No evidence of deep venous thrombosis involving the bilateral lower extremities.
[2017-12-05 21:39] VITALS: BP 128/58
[2017-12-06 06:00] VITALS: BP 122/72
--- NOTE | 2017-12-06 07:26 | PN- Housestaff ---
Marcus Vazquez 12/06/17 0726: Subjective Follow-up For: COPD Exacerbation Tachycardia Subjective: Is currently on high flow 55% oxygen. No events overnight. She denies chest pain, palpitations, dizziness. Today she tells me that she is fine sitting in a chair but gets short of breath when standing up or walking. She remained in normal sinus rhythm overnight. She has no new complaints. Review of Systems Constitutional: Reports: see HPI. Objective Last 24 Hrs of Vital Signs/I&O Vital Signs Date Time Temp Pulse Resp B/P B/P Pulse O2 O2 Flow FiO2 Mean Ox Delivery Rate 12/06 0841 94 Nasal 50% Cannula 12/06 08 95 Nasal 55% Cannula 12/06 0600 98.3 94 20 122/72 95 Nasal Cannula 12/06 0131 94 Nasal 60% Cannula 12/05 2245 94 Nasal 55% Cannula 12/05 2200 Nasal 55% Cannula 12/05 2139 97.9 92 22 128/58 96 Nasal Cannula 12/05 2036 94 Nasal 55% Cannula 12/05 1710 95 Nasal 55% Cannula 12/05 1449 98.7 106 24 138/64 92 Nasal 5.0L Cannula Intake & Output 12/06 1600 12/06 0800 12/06 0000 Intake Total 300 Output Total Balance 300 Intake, Oral 300 Physical Exam General Appearance: Alert, Oriented X3, Cooperative, Mild Distress Skin Temp/Moisture Exam: Warm/Dry HEENT: Atraumatic, EOMI Neck: Supple, No JVD Cardiovascular: Normal S1, Normal S2 Lungs: Clear to Auscultation Abdomen: Normal Bowel Sounds, Soft, No Tenderness Extremities: No Cyanosis, No Tenderness/Swelling Current Medications: Current Medications Sig/Zackery Start time Last Medication Dose Route Stop Time Status Admin Acetaminophen 650 MG Q6P PRN 12/04 09 AC PO Acetaminophen 1,000 MG Q6P PRN 12/04 0900 AC IV Albuterol Sulfate 3 ML TID 12/05 2100 AC 12/06 INH 0840 Albuterol Sulfate 3 ML Q6 12/05 1800 DC INH Albuterol Sulfate 3 ML TID 12/04 2100 DC 12/05 INH 1328 Aspirin Buffered 81 MG DAILY 12/04 1000 AC 12/06 PO 0938 Budesonide/ 2 PUF BID 12/05 1335 DC Formoterol Fumarate INH Ceftriaxone Sodium 1,000 MG DAILY 12/05 1259 AC 12/06 IV 0937 Enoxaparin Sodium 40 MG DAILY 12/04 0900 AC 12/06 SC 0937 Ipratropium [place] 2.5 ML TID 12/05 2100 AC 12/06 INH 0840 Ipratropium [place] 2.5 ML Q6 12/05 1800 DC INH Methylprednisolone 40 MG Q8 12/05 1400 DC 12/05 IV 12/05 2300 2056 Oxycodone/ 1 TAB Q6P PRN 12/04 09 AC Acetaminophen PO Prednisone 60 MG DAILY 12/06 0900 AC 12/06 PO 0937 Tamoxifen Citrate 20 MG DAILY 12/04 1001 AC 12/06 PO 0939 Tiotropium [place] 1 PUF DAILY 12/05 1335 DC INH Last 24 Hrs of Lab/Sreedhar Results Last 24 Hrs of Labs/Mics: Laboratory Tests 12/06/17 0630: Anion Gap 6, Estimated GFR > 60, BUN/Creatinine Ratio 41.3 H, CBC w Diff NO MAN DIFF REQ, RBC 4.62, MCV 88.2, MCH 29.2, MCHC 33.2, RDW 14.2, MPV 7.5, Gran % 91.5 H, Lymphocytes % 4.7 L, Monocytes % 3.0, Eosinophils % 0, Basophils % 0.8 , Absolute Granulocytes 18.6 H, Absolute Lymphocytes 1.0 L, Absolute Monocytes 0.6, Absolute Eosinophils 0, Absolute Basophils 0.2 Assessment/Plan Assessment: Mrs Keys is a 77-year-old female with past medical history of polymyalgia rheumatica on chronic prednisone, COPD not on home oxygen, bladder cancer status post resection 2 and currently on mitomycin (6 out of 8 shots given), prior history of breast cancer status post lumpectomy and radiation on tamoxifen. Presented to ED with chief complaint of worsening shortness of breath the night prior to presentation. Apparently, she was having some symptoms of cold and cough since 2 days prior to today's presentation along with congestion in her nose, irritation in the ear, and headache. She tried her inhalers but they did not help and was BIBA to [place] emergency department. On arrival her saturations were found to be 70%, initially she was placed on 100% Fi O2. Today she is on 55% high flow nasal canula, and she is tapering down. She feels better, possibly indicating that new abx therapy is working in combination with steroids. We will try to wean her down further off oxygen. #COPD Exacerabtion - Pulmonary recs appreciated - Prednisone 60mg - DuoNeb (Ipratropium/Atrovent + Albuterol/Proventil) Q6 - Hold Symbicrot and Spiriva - Cont IV ceftriaxone (recommended abx for her stage of COPD exacerbation with suspected bacterial etiology) #Tachycardia - Resolved - D Dimer - Low - Lower ext BL doppler: Negative for DVT (Hx of malignancy, including recent bladder cancer, hence increased chance of hypercoaguablity) #Leukocytosis - Most likely related to chronic steroid use for PMR #Previous Long Nodue - Previous 3mm lung nodule needs to be followed-up in May 2018 by pulmonology outpt #Osteopenia - Most likely secondary to chronic steroid use Problem List: 1. COPD exacerbation Pain Ratin Pain Location: N/a Pain Goal: Remain pain free Pain Plan: Per pathway Tomorrow's Labs & Rationales: BEP. CBC. Selam HAIDER,Melba 12/06/17 1056: Attending MD Review Statement Attending Statement Attending MD Statement: examined this patient, discuss w/resident/PA/BENEFITS TECHNICIAN, agreed w/resident/PA/BENEFITS TECHNICIAN, reviewed EMR data (avail), discussed with nursing, discussed with case mgmt, amended to note Attending Assessment/Plan: Patient seen and examined. During the day yesterday she became more hypoxic and ended up being placed on high flow oxygen for supplementation. She remains on high flow oxygen this morning but reports feeling better. She reports feeling less short of breath. She is afebrile. She is hemodynamically stable. On examination she looks more comfortable compared to yesterday. She has adequate entry bilaterally however she does have diffuse rhonchi. Plan: -Pulmonology consultation appreciated. Continue bronchodilator therapy. Continue systemic steroid therapy. She has been transitioned to prednisone today. -Wean down oxygen supplementation as tolerated. -Mobilize patient as tolerated.
[2017-12-06 07:52] LABS: ABSOLUTE BASOPHIL COUNT 0.2 /CUMM (0.0-0.2); ABSOLUTE EOSINOPHIL COUNT 0 /CUMM (0.0-0.7); ABSOLUTE GRANULOCYTE CT 18.6 /CUMM (1.4-6.5); ABSOLUTE MONOCYTE COUNT 0.6 /CUMM (0.10-0.60); BASOPHIL % 0.8 % (0.0-2.0); EOSINOPHIL % 0 % (0-5); GRANULOCYTE % 91.5 % (42.2-75.2); HEMATOCRIT 40.7 % (37-47); MEAN CORPUSCULAR HGB 29.2 PG (27.0-31.0); MEAN CORPUSCULAR HGB CONC 33.2 G/DL (33.0-37.0); MEAN CORPUSCULAR VOLUME 88.2 FL (81.0-99.0); MEAN PLATELET VOLUME 7.5 FL (7.4-10.4); PLATELET COUNT 347 /CUMM (130-400); RBC DISTRIBUTION WIDTH 14.2 % (11.5-14.5); RED BLOOD CELL CT 4.62 /CUMM (4.20-5.40)
[2017-12-06 08:53] LABS: WHITE BLOOD CELL COUNT 20.3 /CUMM (4.8-10.8)
--- NOTE | 2017-12-06 12:31 | PN- Pulmonary ---
Subjective HPI/Critical Care Issues: During the day yesterday she became more hypoxic and ended up being placed on high flow oxygen for supplementation. She remains on high flow oxygen this morning but reports feeling better. She reports feeling less short of breath. She is afebrile. She is hemodynamically stable. Improved clinically by worse by fio2 since yesterday Objective Current Medications: Current Medications Sig/Zackery Start time Last Medication Dose Route Stop Time Status Admin Acetaminophen 650 MG Q6P PRN 12/04 09 AC PO Acetaminophen 1,000 MG Q6P PRN 12/04 0900 AC IV Albuterol Sulfate 3 ML TID 12/05 2100 AC 12/06 INH 0840 Albuterol Sulfate 3 ML Q6 12/05 1800 DC INH Albuterol Sulfate 3 ML TID 12/04 2100 DC 12/05 INH 1328 Aspirin Buffered 81 MG DAILY 12/04 1000 AC 12/06 PO 0938 Azithromycin 500 MG DAILY 12/05 0800 DC Sodium Chloride 250 ML IV Budesonide/ 2 PUF BID 12/05 1335 DC Formoterol Fumarate INH Ceftriaxone Sodium 1,000 MG DAILY 12/05 1259 AC 12/06 IV 0937 Enoxaparin Sodium 40 MG DAILY 12/04 0900 AC 12/06 SC 0937 Ipratropium [place] 2.5 ML TID 12/05 2100 AC 12/06 INH 0840 Ipratropium [place] 2.5 ML Q6 12/05 1800 DC INH Methylprednisolone 40 MG Q8 12/05 1400 DC 12/05 IV 12/05 2300 2056 Oxycodone/ 1 TAB Q6P PRN 12/04 09 AC Acetaminophen PO Prednisone 60 MG DAILY 12/06 0900 AC 12/06 PO 0937 Tamoxifen Citrate 20 MG DAILY 12/04 1001 AC 12/06 PO 0939 Tiotropium [place] 1 PUF DAILY 12/05 1335 DC INH Vital Signs & I&O Last 24 Hrs of Vitals and I&O: Vital Signs Date Time Temp Pulse Resp B/P B/P Pulse O2 O2 Flow FiO2 Mean Ox Delivery Rate 12/06 0841 94 Nasal 50% Cannula 12/06 0600 98.3 94 20 122/72 95 Nasal Cannula 12/06 0131 94 Nasal 60% Cannula 12/055 94 Nasal 55% Cannula 12/05 2199 Nasal 55% Cannula 12/059 97.9 92 22 128/58 96 Nasal Cannula 12/06 2035 94 Nasal 55% Cannula 12/05 1710 95 Nasal 55% Cannula 12/05 1449 98.7 106 24 138/64 92 Nasal 5.0L Cannula Intake & Output 12/06 1600 12/06 0800 12/06 0000 Intake Total 300 Output Total Balance 300 Intake, Oral 300 Laboratory Tests 12/06 12/05 0630 1040 Chemistry Sodium (137 - 145 mmol/L) 139 Potassium (3.5 - 5.1 mmol/L) 4.6 Chloride (98 - 107 mmol/L) 106 Carbon Dioxide (22 - 30 mmol/L) 27 Anion Gap (5 - 16) 6 BUN (7 - 17 mg/dL) 33 H Creatinine (0.5 - 1.0 mg/dL) 0.8 Estimated GFR (>60 ml/min) > 60 BUN/Creatinine Ratio (7 - 25 %) 41.3 H Coagulation D-Dimer High Sensitivty (0 - 243 ng/ml) < 200 Hematology CBC w Diff NO MAN DIFF REQ WBC (4.8 - 10.8 /CUMM) 20.3 H RBC (4.20 - 5.40 /CUMM) 4.62 Hgb (12.0 - 16.0 G/DL) 13.5 Hct (37 - 47 %) 40.7 MCV (81.0 - 99.0 FL) 88.2 MCH (27.0 - 31.0 PG) 29.2 MCHC (33.0 - 37.0 G/DL) 33.2 RDW (11.5 - 14.5 %) 14.2 Plt Count (130 - 400 /CUMM) 347 MPV (7.4 - 10.4 FL) 7.5 Gran % (42.2 - 75.2 %) 91.5 H Lymphocytes % (20.5 - 51.1 %) 4.7 L Monocytes % (1.7 - 9.3 %) 3.0 Eosinophils % (0 - 5 %) 0 Basophils % (0.0 - 2.0 %) 0.8 Absolute Granulocytes (1.4 - 6.5 /CUMM) 18.6 H Absolute Lymphocytes (1.2 - 3.4 /CUMM) 1.0 L Absolute Monocytes (0.10 - 0.60 /CUMM) 0.6 Absolute Eosinophils (0.0 - 0.7 /CUMM) 0 Absolute Basophils (0.0 - 0.2 /CUMM) 0.2 12/05 12/04 0607 1445 Chemistry Sodium (137 - 145 mmol/L) 139 Potassium (3.5 - 5.1 mmol/L) 4.0 Chloride (98 - 107 mmol/L) 107 Carbon Dioxide (22 - 30 mmol/L) 25 Anion Gap (5 - 16) 7 BUN (7 - 17 mg/dL) 28 H Creatinine (0.5 - 1.0 mg/dL) 0.9 Estimated GFR (>60 ml/min) > 60 BUN/Creatinine Ratio (7 - 25 %) 31.1 H Hematology CBC w Diff NO MAN DIFF REQ WBC (4.8 - 10.8 /CUMM) 15.3 H RBC (4.20 - 5.40 /CUMM) 4.79 Hgb (12.0 - 16.0 G/DL) 14.0 Hct (37 - 47 %) 42.1 MCV (81.0 - 99.0 FL) 87.9 MCH (27.0 - 31.0 PG) 29.2 MCHC (33.0 - 37.0 G/DL) 33.2 RDW (11.5 - 14.5 %) 14.1 Plt Count (130 - 400 /CUMM) 338 MPV (7.4 - 10.4 FL) 7.6 Gran % (42.2 - 75.2 %) 93.9 H Lymphocytes % (20.5 - 51.1 %) 5.3 L Monocytes % (1.7 - 9.3 %) 0.8 L Eosinophils % (0 - 5 %) 0 Basophils % (0.0 - 2.0 %) 0 Absolute Granulocytes (1.4 - 6.5 /CUMM) 14.3 H Absolute Lymphocytes (1.2 - 3.4 /CUMM) 0.8 L Absolute Monocytes (0.10 - 0.60 /CUMM) 0.1 Absolute Eosinophils (0.0 - 0.7 /CUMM) 0 Absolute Basophils (0.0 - 0.2 /CUMM) 0 Urines Urine Color (YEL,AMB,STR) YEL Urine Clarity (CLEAR) HAZY H Urine pH (5.0 - 8.0) 6.0 Ur Specific [place] (1.001 - 1.035) >= 1.030 Urine Protein (NEG,<30 MG/DL) 30 H Urine Ketones (NEG) 15 H Urine Nitrite (NEG) NEG Urine Bilirubin (NEG) NEG Urine Urobilinogen (0.1 - 1.0 EU/dl) 0.2 Ur Leukocyte Esterase (NEG) SMALL H Ur Microscopic SEDIMENT EXAMINED Urine RBC (0 - 5 /HPF) 15-25 H Urine WBC (0 - 2 /HPF) 25-50 H Ur Epithelial Cells (NONE,FEW) FEW Urine Bacteria (NEG/NONE) FEW H Urine Hemoglobin (NEG) MOD H Urine Glucose (N MG/DL) NEG Microbiology Date/Time Procedure - Status Source Growth 12/04 1005 Respiratory Culture - CAN LOWER RESP Cancelled: SPECIMEN NOT RECEIVED IN LABORATORY 12/04 100 Gram Stain - CAN LOWER RESP Cancelled: SPECIMEN NOT RECEIVED IN LABORATORY 12/04 0725 Blood Culture - RES BLOOD 12/04 0710 Blood Culture - RES BLOOD Impression/Plan Impression/Plan Impression/Plan: CXR sig copd General Appearance Alert, Oriented X3, Cooperative Skin No Rashes, No Breakdown, multiple small pinkish macules over b/l hands, chronic HEENT Atraumatic, PERRLA, EOMI Neck Supple, No JVD, mild redness noted in orpharynx Cardiovascular Regular Rate, Normal S1, Normal S2, No Murmurs Lungs bilateral wheezing with prolonged expiration Abdomen Normal Bowel Sounds, Soft, No Tenderness Extremities No Clubbing, No Cyanosis, No Edema, Normal Pulses Vascular Normal Pulses Mrs Keys is a 77-year-old female with past medical history of polymyalgia rheumatica on chronic prednisone, [id number] smoker quit few years ago with COPD not on home oxygen, bladder cancer status post resection 2 and currently on mitomycin (6 out of 8 shots given), prior history of breast cancer status post lumpectomy and radiation on tamoxifen Issues include * Acute COPD exacerbation in the lady with severe COPD radiologically and by history, leukocytosis with yellow-green sputum. Patient is on chronic steroids for polymyalgia rheumatica and she desires for Pseudomonas however no prior history suggestive of that. No clinical vte so far ( neg doppler and low d-dimer ) * Polymyalgia rheumatica on steroids hence immunosuppressed * Recent bladder malignancy, previous breast cancer on hormonal therapy with no clinical evidence suggestive of any pulmonary metastasis or malignancy so far. Prior CAT scan unremarkable for any malignancy other than emphysema. No clinical evidence suggestive of venous thromboembolism * Significant osteopenia * 3 mm lung nodule seen few months ago needs follow-up in a year in May 2018 RECOMMENDATION Continue nebulizer therapy with DuoNeb [id number] every 6 hours COnt steroids for now Continue IV ceftriaxone We will follow closely
[2017-12-06 14:58] VITALS: BP 154/72
[2017-12-06 21:30] VITALS: BP 138/70
[2017-12-06 22:05] VITALS: BP 158/70
[2017-12-07 06:51] VITALS: BP 128/70
--- NOTE | 2017-12-07 09:17 | PN- Housestaff ---
Marcus Vazquez 12/07/17 09: Subjective Follow-up For: COPD exacerbation Subjective: Patient sitting up with son at bedside. She is in no acute distress. No issues overnight. She feels that her breathing has improved. We have tapered her oxygen down to 45% FiO2 on high flow nasal cannula. She endorses that her sputum is mostly clear now. Her son reports that she has not been eating as much. When asked the patient says she her appetite has decreased during the course of this illness. Review of Systems Constitutional: Reports: see HPI. Objective Last 24 Hrs of Vital Signs/I&O Vital Signs Date Time Temp Pulse Resp B/P B/P Pulse O2 O2 Flow FiO2 Mean Ox Delivery Rate 12/07 1510 97.8 84 22 128/70 96 Nasal Cannula 12/07 0917 93 Nasal 45% Cannula 12/07 0800 Nasal 45% Cannula 12/07 0651 98.5 78 24 128/70 95 Nasal 50% Cannula 12/07 0107 95 Nasal 50% Cannula 12/06 2205 98.2 95 22 158/70 96 Nasal Cannula 12/06 2130 138/70 12/06 2004 Nasal 50% Cannula 12/06 1707 92 Nasal 50% Cannula 12/06 1600 92 Nasal 50% Cannula Intake & Output 12/07 1600 12/07 0800 12/07 0000 Intake Total 500 240 240 Output Total 350 350 350 Balance 150 -110 -110 Intake, Oral 500 240 240 Number 0 1 Bowel Movements Output, Urine 350 350 350 Patient 147 lb Weight Weight Bed scale Measurement Method Physical Exam General Appearance: Alert, Oriented X3, Cooperative, No Acute Distress Skin Temp/Moisture Exam: Warm/Dry HEENT: Atraumatic, EOMI Neck: Supple Cardiovascular: Normal S1, Normal S2 Lungs: BL wheezing Abdomen: Normal Bowel Sounds, Soft, No Tenderness Extremities: No Tenderness/Swelling Current Medications: Current Medications Sig/Zackery Start time Last Medication Dose Route Stop Time Status Admin Acetaminophen 650 MG Q6P PRN 12/04 899 AC PO Acetaminophen 1,000 MG Q6P PRN 12/04 899 AC IV Albuterol Sulfate 3 ML TID 12/05 2100 AC 12/07 INH 1414 Aspirin Buffered 81 MG DAILY 12/04 1000 AC 12/07 PO 0849 Ceftriaxone Sodium 1,000 MG DAILY 12/05 1259 AC 12/07 IV 0917 Enoxaparin Sodium 40 MG DAILY 12/04 899 AC 12/07 SC 0850 Ipratropium [place] 2.5 ML TID 12/05 2100 AC 12/07 INH 1413 Oxycodone/ 1 TAB Q6P PRN 12/04 09 AC Acetaminophen PO Patient Medication 1 ED ONE ONE 12/06 1800 [place] Teaching ED 12/06 1801 Polyethylene Glycol 17 GM DAILY 12/06 1747 AC 12/06 PO 1904 Prednisone 30 MG DAILY 12/17 09 AC PO 12/19 09 Prednisone 40 MG DAILY 12/14 09 AC PO 12/16 09 Prednisone 50 MG DAILY 12/11 09 AC PO 12/13 09 Prednisone 60 MG DAILY 12/08 09 CAN PO 12/20 0859 Prednisone 60 MG DAILY 12/08 09 AC PO 12/10 09 Prednisone 60 MG DAILY 12/06 0900 DC 12/07 PO 0848 Tamoxifen Citrate 20 MG DAILY 12/04 1001 AC 12/07 PO 0850 Assessment/Plan Assessment: Mrs Keys is a 77-year-old female with past medical history of polymyalgia rheumatica on chronic prednisone, COPD not on home oxygen, bladder cancer status post resection 2 and currently on mitomycin (6 out of 8 shots given), prior history of breast cancer status post lumpectomy and radiation on tamoxifen. Presented to ED with chief complaint of worsening shortness of breath the night prior to presentation. Apparently, she was having some symptoms of cold and cough since 2 days prior to today's presentation along with congestion in her nose, irritation in the ear, and headache. She tried her inhalers but they did not help and was BIBA to [place] emergency department. On arrival her saturations were found to be 70%, initially she was placed on 100% Fi O2. Today she is on 45% high flow nasal canula, and we will continue tapering down. Patient feels better, possibly indicating that new abx therapy is working in combination with steroids. We will try to wean her down further off oxygen. Will follow her diet/appetite closely. #COPD Exacerabtion - Pulmonary recs appreciated - Prednisone 60mg, decrease by 10mg every third day - DuoNeb (Ipratropium/Atrovent + Albuterol/Proventil) Q6 - Hold Symbicrot and Spiriva - Cont IV ceftriaxone (recommended abx for her stage of COPD exacerbation with suspected bacterial etiology) - Continue to wean off oxygen (down to 45% FiO2 today) - Ask Pulm if mucolytic can be given #Tachycardia - Resolved - D Dimer - Low - Lower ext BL doppler: Negative for DVT (Hx of malignancy, including recent bladder cancer, hence increased chance of hypercoaguablity) #Leukocytosis - Most likely related to chronic steroid use for PMR #Previous Long Nodue - Previous 3mm lung nodule needs to be followed-up in May 2018 by pulmonology outpt #Osteopenia - Most likely secondary to chronic steroid use DVT ppx Full Code Problem List: 1. COPD exacerbation Pain Ratin Pain Location: n/a Pain Goal: Remain pain free Pain Plan: per pathway Tomorrow's Labs & Rationales: None Melba Doss MD 12/07/17 0924: Attending MD Review Statement Attending Statement Attending MD Statement: examined this patient, discuss w/resident/PA/MANAGER OF LOSS PREVENTION OPERATIONS, agreed w/resident/PA/MANAGER OF LOSS PREVENTION OPERATIONS, reviewed EMR data (avail), discussed with nursing, discussed with case mgmt, amended to note Attending Assessment/Plan: Patient seen and examined. Resting comfortably not in any acute distress. No issues overnight. Continues to report feeling better this morning. Currently on 45% FiO2. This is improved from 60% yesterday. On examination she is not in any respiratory distress. She has adequate entry bilaterally with mild rhonchi. No peripheral edema. Continue bronchodilator therapy. Continue prednisone. Decrease by 10 mg every third day. Continue to wean off oxygen supplementation as tolerated. Based on her leukocytosis which colored sputum she was started on ceftriaxone as recommended by the pulmonology service. Please follow-up with the pulmonology service regarding transition patient to oral antibiotic therapy.
--- NOTE | 2017-12-07 13:03 | PN- Pulmonary ---
Subjective HPI/Critical Care Issues: The pateint is awake and alert. She reports feeling slightly improved every day. She has ongoing shortness of breath. Objective Current Medications: Current Medications Sig/Zackery Start time Last Medication Dose Route Stop Time Status Admin Acetaminophen 650 MG Q6P PRN 12/04 0900 AC PO Acetaminophen 1,000 MG Q6P PRN 12/04 0900 AC IV Albuterol Sulfate 3 ML TID 12/05 2100 AC 12/07 INH 0916 Aspirin Buffered 81 MG DAILY 12/04 1000 AC 12/07 PO 0849 Ceftriaxone Sodium 1,000 MG DAILY 12/05 1259 AC 12/07 IV 0917 Enoxaparin Sodium 40 MG DAILY 12/04 0900 AC 12/07 SC 0850 Ipratropium [place] 2.5 ML TID 12/05 2100 AC 12/07 INH 0916 Oxycodone/ 1 TAB Q6P PRN 12/04 09 AC Acetaminophen PO Patient Medication 1 ED ONE ONE 12/06 1800 DC Teaching ED 12/06 1801 Polyethylene Glycol 17 GM DAILY 12/06 1747 AC 12/06 PO 1904 Prednisone 60 MG DAILY 12/08 0900 UNVr PO 12/20 0859 Prednisone 60 MG DAILY 12/06 0900 DC 12/07 PO 0848 Tamoxifen Citrate 20 MG DAILY 12/04 1001 AC 12/07 PO 0850 Vital Signs & I&O Last 24 Hrs of Vitals and I&O: Vital Signs Date Time Temp Pulse Resp B/P B/P Pulse O2 O2 Flow FiO2 Mean Ox Delivery Rate 12/07 0917 93 Nasal 45% Cannula 12/07 0800 Nasal 45% Cannula 12/07 0651 98.5 78 24 128/70 95 Nasal 50% Cannula 12/07 0107 95 Nasal 50% Cannula 12/06 2205 98.2 95 22 158/70 96 Nasal Cannula 12/06 2130 138/70 12/06 2004 Nasal 50% Cannula 12/06 1707 92 Nasal 50% Cannula 12/06 1600 92 Nasal 50% Cannula 12/06 1458 97.3 89 20 154/72 94 Nasal Cannula Intake & Output 12/07 1600 12/07 0800 12/07 0000 Intake Total 240 240 Output Total 350 350 Balance -110 -110 Intake, Oral 240 240 Number 0 1 Bowel Movements Output, Urine 350 350 Patient 147 lb Weight Weight Bed scale Measurement Method Exam General Appearance: no apparent distress, alert, awake, comfortable Head: atraumatic Neck: supple Respiratory: bilateral wheezes scattered throughout Cardiovascular: regular rate/rhythm (S1 and S2+) Abdomen: normal bowel sounds, soft, non-tender Extremities: no edema Skin: intact, normal color, warm/dry Results Last 24 Hrs of Lab Results: None Impression/Plan Impression/Plan Impression/Plan: 1. Acute exacerbation of COPD. 2. History of polymyalgia rheumatica, on chronic steroid therapy, immunosuppressed. 3. Recent bladder malignancy, previous breast cancer on hormonal therapy, and no evidence of recurrence. 4. Significant osteopenia. 5. 3 mm lung nodule which will require ongoing follow-up. Recommendations: * Continue duo nebs every 6 hours. * Oxygen for saturations greater than 92%. * Continue IV ceftriaxone. * Follow-up cultures. * Prednisone 60 mg daily, will taper down slowly given the patient's history of chronic steroid dependence. * DVT prophylaxis at all times. * Continue all supportive care.
[2017-12-07 15:10] VITALS: BP 128/70
[2017-12-07 21:42] VITALS: BP 140/56
[2017-12-08 06:32] VITALS: BP 146/68
--- NOTE | 2017-12-08 07:53 | PN- Pulmonary ---
Subjective HPI/Critical Care Issues: The patient is awake and alert. She is doing better overall. The patient is now on nasal cannula at 4.5 L with saturations in the low 90s. This has improved over the past 24 hours. She offers no new complaints today. Objective Current Medications: Current Medications Sig/Zackery Start time Last Medication Dose Route Stop Time Status Admin Acetaminophen 650 MG Q6P PRN 12/04 09 AC PO Acetaminophen 1,000 MG Q6P PRN 12/04 0900 AC IV Albuterol Sulfate 3 ML TID 12/05 2100 AC 12/08 INH 0636 Aspirin Buffered 81 MG DAILY 12/04 1000 AC 12/07 PO 0849 Ceftriaxone Sodium 1,000 MG DAILY 12/05 1259 AC 12/07 IV 0917 Enoxaparin Sodium 40 MG DAILY 12/04 0900 AC 12/07 SC 0850 Ipratropium [place] 2.5 ML TID 12/05 2100 AC 12/08 INH 0636 Oxycodone/ 1 TAB Q6P PRN 12/04 09 AC Acetaminophen PO Polyethylene Glycol 17 GM DAILY 12/06 1747 AC 12/06 PO 1904 Prednisone 30 MG DAILY 12/17 09 AC PO 12/19 0901 Prednisone 40 MG DAILY 12/14 0900 AC PO 12/16 0901 Prednisone 50 MG DAILY 12/11 0900 AC PO 12/13 0901 Prednisone 60 MG DAILY 12/08 0900 CAN PO 12/20 0859 Prednisone 60 MG DAILY 12/08 0900 AC PO 12/10 0901 Prednisone 60 MG DAILY 12/06 0900 DC 12/07 PO 0848 Tamoxifen Citrate 20 MG DAILY 12/04 1001 AC 12/07 PO 0850 Vital Signs & I&O Last 24 Hrs of Vitals and I&O: Vital Signs Date Time Temp Pulse Resp B/P B/P Pulse O2 O2 Flow FiO2 Mean Ox Delivery Rate 12/08 0637 92 Nasal 4.5L Cannula 12/08 0632 97.8 112 24 146/68 93 Nasal 4.5L Cannula 12/08 0000 Nasal 4.5L Cannula 12/07 2142 97.6 85 20 140/56 94 Nasal Cannula 12/07 1943 95 Nasal 4.5L Cannula 12/07 1600 Nasal 4.5L Cannula 12/07 1510 97.8 84 22 128/70 96 Nasal Cannula 12/07 0917 93 Nasal 45% Cannula 12/07 0800 Nasal 45% Cannula Intake & Output 12/08 0800 12/08 0000 12/07 1600 Intake Total 120 120 500 Output Total 350 Balance 120 120 150 Intake, Oral 120 120 500 Output, Urine 350 Patient 146 lb Weight Weight Bed scale Measurement Method Exam General Appearance: no apparent distress, alert, awake, comfortable Head: atraumatic Neck: supple Respiratory: bilateral wheezes scattered throughout Cardiovascular: regular rate/rhythm (S1 and S2+) Abdomen: normal bowel sounds, soft, non-tender Extremities: no edema Skin: intact, normal color, warm/dry Results Last 24 Hrs of Lab Results: None available. Impression/Plan Impression/Plan Impression/Plan: 1. Acute exacerbation of COPD. 2. History of polymyalgia rheumatica, on chronic steroid therapy, immunosuppressed. 3. Recent bladder malignancy, previous breast cancer on hormonal therapy, and no evidence of recurrence. 4. Significant osteopenia. 5. 3 mm lung nodule which will require ongoing follow-up. Increased leukocytosis, likely secondary to steroids per Recommendations: * Check follow-up CBC to reevaluate increasing white blood cell count. * Please check a follow-up PA and lateral chest x-ray. * Continue duo nebs every 6 hours. * Oxygen for saturations greater than 92%. * Continue IV ceftriaxone. * Follow-up cultures. * Continue with slow prednisone taper. * DVT prophylaxis at all times. * Ambulate/increase activity. * Continue all supportive care.
--- NOTE | 2017-12-08 09:09 | PN- Housestaff ---
Denice Escobar 12/08/17 0909: Subjective Follow-up For: COPD exacerbation Tele-Events Since Last Visit: Not on filament wound parts fabricator Subjective: Patient seen and examined lying comfortably in bed this morning, in no acute distress. She expresses that her breathing has improved since when she came in. She has no shortness of breath. Sleep was good last night she does complain of small amounts/quarter size of green sputum couple of times over the past 24 hours. No acute events overnight Review of Systems Constitutional: Reports: see HPI. Objective Last 24 Hrs of Vital Signs/I&O Vital Signs Date Time Temp Pulse Resp B/P B/P Pulse O2 O2 Flow FiO2 Mean Ox Delivery Rate 12/08 1444 97.8 92 22 124/50 93 Nasal Cannula 12/08 1338 93 Nasal 4.5L Cannula 12/08 0800 Nasal 4.5L Cannula 12/08 0637 92 Nasal 4.5L Cannula 12/08 0632 97.8 112 24 146/68 93 Nasal 4.5L Cannula 12/08 0000 Nasal 4.5L Cannula 12/07 2142 97.6 85 20 140/56 94 Nasal Cannula 12/07 1943 95 Nasal 4.5L Cannula Intake & Output 12/08 1600 12/08 0800 12/08 0000 Intake Total 800 120 120 Output Total 650 Balance 150 120 120 Intake, Oral 800 120 120 Number 1 Bowel Movements Output, Urine 650 Patient 146 lb Weight Weight Bed scale Measurement Method Physical Exam General Appearance: Alert, Oriented X3, Cooperative, No Acute Distress Other Physical Findings: General Appearance: Patient seen and examined lying comfortably in bed in no acute distress. Alert, Oriented X3, Cooperative, No Acute Distress Skin: No Breakdown Skin Temp/Moisture Exam: Warm/Dry Sepsis Skin Exam (color): Normal for Ethnicity HEENT: Atraumatic, Mucous Membr. moist/pink Neck: Supple, No JVD, No thryomegaly, +2 Carotid Pulse wo Bruit Lymphatic: Axillary nl, Cervical nl Cardiovascular: Regular Rate, Normal S1, Normal S2, No Murmurs Lungs: CTA, No w/r/r Abdomen: Normal Bowel Sounds, Soft, No Tenderness, No Hepatospenomegaly Neurological: Normal Speech, Strength at 5/5 X4 Ext, Normal Tone, Sensation Intact, Cranial Nerves 3-12 NL, Reflexes 2+ Extremities: No Clubbing, No Cyanosis, No edema,Normal Pulses Vascular: Pulses Symmetrical Assessment/Plan Assessment: Mrs Keys is a 77-year-old female with past medical history of polymyalgia rheumatica on chronic prednisone, COPD not on home oxygen, bladder cancer status post resection 2 and currently on mitomycin (6 out of 8 shots given), prior history of breast cancer status post lumpectomy and radiation on tamoxifen. Presented to ED with chief complaint of worsening shortness of breath the night prior to presentation. Apparently, she was having some symptoms of cold and cough since 2 days prior to today's presentation along with congestion in her nose, irritation in the ear, and headache. She tried her inhalers but they did not help and was BIBA to [place] emergency department. On arrival her saturations were found to be 70%, initially she was placed on 100% Fi O2. Problems: COPD exacerbation Leukocytosis Lung nodule Osteopenia Tachycardiaresolved Plan: -We will taper her oxygen as tolerated, keeping oxygen saturation greater than 92%, we will continue the bronchodilator therapy and continue total respiratory care with Acapella device for sputum expectoration -Continue IV ceftriaxone -We will wean down steroid therapy as recommended by pulmonology consult -Follow cultures -She will require physical therapy upon discharge depending on functional status -DVT ppx -Full Code Problem List: 1. COPD exacerbation Pain Ratin Pain Location: None Pain Goal: Remain pain free Pain Plan: Not applicable Tomorrow's Labs & Rationales: CBCT, BEP Selam HAIDER,Melba 12/08/17 0936: Attending MD Review Statement Attending Statement Attending MD Statement: examined this patient, discuss w/resident/PA/STITCHER OPERATOR, agreed w/resident/PA/STITCHER OPERATOR, reviewed EMR data (avail), discussed with nursing, discussed with case mgmt, amended to note Attending Assessment/Plan: Patient seen and examined. Resting comfortably not in any acute distress. No issues overnight. She is doing much better this morning. She has been weaned off high flow oxygen is currently maintaining saturation of 4.5 L of oxygen she reports increase cough or phlegm production. This is anticipated. On examination she has adequate entry bilaterally with diffuse rhonchi compared to previous. She does not appear to be in any acute respiratory distress. She does complain of dyspnea with mild exertion. Recommendations: -Continue to taper down oxygen as tolerated. -Continue bronchodilator therapy. -Wean down steroid therapy as recommended by the pulmonology service. -Ambulate patient as tolerated. -Recommend Acapella device to help with sputum expectoration. -Anticipate discharge in another 48-72 hours. -Depending on her level of deconditioning she may require physical therapy rehabilitation upon discharge.
[2017-12-08 14:44] VITALS: BP 124/50
[2017-12-08 22:06] VITALS: BP 132/72
--- NOTE | 2017-12-09 06:21 | PN- Housestaff ---
JameslachelleMarcus 12/09/17 0621: Subjective Follow-up For: COPD exacerbation Subjective: Patient reports no issues overnight. She notes that her breathing is improving and she feels less tired. Her appetite is slowly coming back as well. Review of Systems Constitutional: Reports: see HPI. Objective Last 24 Hrs of Vital Signs/I&O Vital Signs Date Time Temp Pulse Resp B/P B/P Pulse O2 O2 Flow FiO2 Mean Ox Delivery Rate 12/09 1454 97.7 95 20 128/68 90 Nasal 4.0L Cannula 12/09 0808 93 Nasal 4.5L Cannula 12/09 0800 94 Nasal 4.5L Cannula 12/09 0645 97.8 80 20 140/68 96 Nasal 4.5L Cannula 12/09 0000 Nasal 4.5L Cannula 12/08 2206 97.9 96 18 132/72 94 Nasal 4.5L Cannula 12/08 1941 94 Nasal 4.5L Cannula Intake & Output 12/09 1600 12/09 0800 12/09 0000 Intake Total 705 240 Output Total 550 Balance 155 240 Intake, IV 25 Intake, Oral 680 240 Output, Urine 550 Patient 146 lb Weight Weight Bed scale Measurement Method Physical Exam General Appearance: Alert, Oriented X3, Cooperative, No Acute Distress HEENT: Atraumatic, EOMI Neck: Supple Cardiovascular: Regular Rate, Normal S1, Normal S2 Lungs: BL Wheezes Abdomen: Normal Bowel Sounds, Soft, No Tenderness Extremities: No Cyanosis, No Edema, No Tenderness/Swelling Current Medications: Current Medications Sig/Zackery Start time Last Medication Dose Route Stop Time Status Admin Acetaminophen 650 MG Q6P PRN 12/04 899 AC PO Acetaminophen 1,000 MG Q6P PRN 12/04 899 AC IV Albuterol Sulfate 3 ML TID 12/05 2100 AC 12/09 INH 1407 Aspirin Buffered 81 MG DAILY 12/04 1000 AC 12/09 PO 0914 Ceftriaxone Sodium 1,000 MG DAILY 12/05 1259 DC 12/09 IV 0916 Cefuroxime Sodium 500 MG BID 12/10 899 AC PO Enoxaparin Sodium 40 MG DAILY 12/04 0900 AC 12/09 SC 0915 Ipratropium [place] 2.5 ML TID 12/05 2100 AC 12/09 INH 1407 Oxycodone/ 1 TAB Q6P PRN 12/04 899 AC Acetaminophen PO Polyethylene Glycol 17 GM DAILY 12/06 1747 AC 12/09 PO 0915 Prednisone 30 MG DAILY 12/17 899 AC PO 12/19 900 Prednisone 40 MG DAILY 12/14 899 AC PO 12/16 900 Prednisone 50 MG DAILY 12/11 899 AC PO 12/13 900 Prednisone 60 MG DAILY 12/08 09 AC 12/09 PO 12/10 0901 0915 Tamoxifen Citrate 20 MG DAILY 12/04 1001 AC 12/09 PO 0914 Last 24 Hrs of Lab/Sreedhar Results Last 24 Hrs of Labs/Mics: Laboratory Tests 12/09/17 0645: Anion Gap 4 L, Estimated GFR > 60, BUN/Creatinine Ratio 35.7 H, CBC w Diff NO MAN DIFF REQ, RBC 4.47, MCV 87.7, MCH 29.5, MCHC 33.6, RDW 13.8, MPV 7.2 L, Gran % 74.0, Lymphocytes % 22.2, Monocytes % 2.9, Eosinophils % 0.5, Basophils % 0.4, Absolute Granulocytes 9.2 H, Absolute Lymphocytes 2.8, Absolute Monocytes 0.4, Absolute Eosinophils 0.1, Absolute Basophils 0.1 Assessment/Plan Assessment: Mrs Keys is a 77-year-old female with past medical history of polymyalgia rheumatica on chronic prednisone, COPD not on home oxygen, bladder cancer status post resection 2 and currently on mitomycin (6 out of 8 shots given), prior history of breast cancer status post lumpectomy and radiation on tamoxifen. Presented to ED with chief complaint of worsening shortness of breath the night prior to presentation. Apparently, she was having some symptoms of cold and cough since 2 days prior to today's presentation along with congestion in her nose, irritation in the ear, and headache. She tried her inhalers but they did not help and was BIBA to [place] emergency department. On arrival her saturations were found to be 70%, initially she was placed on 100% Fi O2. - She is now down to 4.5L of oxygen maintaing >95% saturations - Patient feels better, and denies any respiratory distress - Her lungs sound better on examination & appetite is improving - She can now walk to bathroom with minimal shortness of breath on nasal canula - Steroid + antibiotic regimen seem to be resolving exacerbation - We will continue weaning down further of oxygen #COPD Exacerabtion - Pulmonary recs appreciated - Prednisone 60mg, decrease by 10mg every third day - DuoNeb (Ipratropium/Atrovent + Albuterol/Proventil) Q6 - Hold Symbicrot and Spiriva - Switch to Ceftin 500mg BID PO tomorrow - Continue to wean off oxygen (down to 4.5L FiO2 today) - Ask Pulm if mucolytic can be given #Tachycardia - Resolved - D Dimer - Low - Lower ext BL doppler: Negative for DVT (Hx of malignancy, including recent bladder cancer, hence increased chance of hypercoaguablity) #Leukocytosis - Most likely related to chronic steroid use for PMR - decreasing #Previous Long Nodue - Previous 3mm lung nodule needs to be followed-up in May 2018 by pulmonology outpatient #Osteopenia - Most likely secondary to chronic steroid use DVT ppx Full Code Problem List: 1. COPD exacerbation Pain Ratin Pain Location: n/a Pain Goal: Remain pain free Pain Plan: per pathway Tomorrow's Labs & Rationales: CBC BEP Selam HAIDER,Melba 12/09/17 1041: Attending MD Review Statement Attending Statement Attending MD Statement: examined this patient, discuss w/resident/PA/CARPENTERS, agreed w/resident/PA/CARPENTERS, reviewed EMR data (avail), discussed with nursing, discussed with case mgmt, amended to note Attending Assessment/Plan: Patient seen and examined. Resting comfortably not in any acute distress. No issues of. No new complaints this morning. She is maintaining saturation of 4.5 L of oxygen. Reports mild cough. She however continues to be deconditioned complain of increased shortness of breath with mild activity. On examination she has adequate entry bilaterally with mild expiratory rhonchi. Patient would like to be discharged home rather than go to [facility] facility for short-term rehabilitation We will continue to wean down oxygen supplementation as tolerated. Will mobilize patient him in the hospital as tolerated. Anticipate discharge in the next 24-48 hours. Follow-up with the pulmonology service about transitioning to oral antibiotic therapy.
[2017-12-09 06:45] VITALS: BP 140/68
--- NOTE | 2017-12-09 06:49 | RADIOLOGY REPORT ---
EXAMINATION: XR CHEST CLINICAL INFORMATION: COPD exacerbation COMPARISON: Portable chest performed 12/04/2017 and chest radiograph performed 09/13/2016 TECHNIQUE: 2 views of the chest were obtained. FINDINGS: The heart remains normal size. The lungs are hyperinflated. No focal consolidation. Minimal linear opacity at right lung bases consistent with atelectasis. No edema or evidence for pleural effusion. IMPRESSION: There are changes related to known emphysema. No acute pulmonary finding is seen.
[2017-12-09 08:07] LABS: ABSOLUTE BASOPHIL COUNT 0.1 /CUMM (0.0-0.2); ABSOLUTE EOSINOPHIL COUNT 0.1 /CUMM (0.0-0.7); ABSOLUTE GRANULOCYTE CT 9.2 /CUMM (1.4-6.5); ABSOLUTE LYMPH COUNT 2.8 /CUMM (1.2-3.4); ABSOLUTE MONOCYTE COUNT 0.4 /CUMM (0.10-0.60); BASOPHIL % 0.4 % (0.0-2.0); EOSINOPHIL % 0.5 % (0-5); HEMATOCRIT 39.2 % (37-47); MEAN CORPUSCULAR HGB 29.5 PG (27.0-31.0); MEAN CORPUSCULAR HGB CONC 33.6 G/DL (33.0-37.0); MEAN CORPUSCULAR VOLUME 87.7 FL (81.0-99.0); MEAN PLATELET VOLUME 7.2 FL (7.4-10.4); PLATELET COUNT 354 /CUMM (130-400); RBC DISTRIBUTION WIDTH 13.8 % (11.5-14.5); RED BLOOD CELL CT 4.47 /CUMM (4.20-5.40); WHITE BLOOD CELL COUNT 12.5 /CUMM (4.8-10.8)
[2017-12-09 14:54] VITALS: BP 128/68
--- NOTE | 2017-12-09 16:14 | PN- Pulmonary ---
Subjective HPI/Critical Care Issues: Patient seen and examined. Resting comfortably not in any acute distress. No issues of. No new complaints this morning. She is maintaining saturation of 4.5 L of oxygen. Reports mild cough. She however continues to be deconditioned complain of increased shortness of breath with mild activity. Objective Current Medications: Current Medications Sig/Zackery Start time Last Medication Dose Route Stop Time Status Admin Acetaminophen 650 MG Q6P PRN 12/04 09 AC PO Acetaminophen 1,000 MG Q6P PRN 12/04 09 AC IV Albuterol Sulfate 3 ML TID 12/05 2100 AC 12/09 INH 1407 Aspirin Buffered 81 MG DAILY 12/04 1000 AC 12/09 PO 0914 Ceftriaxone Sodium 1,000 MG DAILY 12/05 1259 DC 12/09 IV 0916 Cefuroxime Sodium 500 MG BID 12/10 09 AC PO Enoxaparin Sodium 40 MG DAILY 12/04 0900 AC 12/09 SC 0915 Ipratropium [place] 2.5 ML TID 12/05 2100 AC 12/09 INH 1407 Oxycodone/ 1 TAB Q6P PRN 12/04 09 AC Acetaminophen PO Polyethylene Glycol 17 GM DAILY 12/06 1747 AC 12/09 PO 0915 Prednisone 30 MG DAILY 12/17 09 AC PO 12/19 0901 Prednisone 40 MG DAILY 12/14 09 AC PO 12/16 0901 Prednisone 50 MG DAILY 12/11 0900 AC PO 12/13 0901 Prednisone 60 MG DAILY 12/08 0900 AC 12/09 PO 12/10 0901 0915 Tamoxifen Citrate 20 MG DAILY 12/04 1001 AC 12/09 PO 0914 Vital Signs & I&O Last 24 Hrs of Vitals and I&O: Vital Signs Date Time Temp Pulse Resp B/P B/P Pulse O2 O2 Flow FiO2 Mean Ox Delivery Rate 12/09 1454 97.7 95 20 128/68 90 Nasal 4.0L Cannula 12/09 0808 93 Nasal 4.5L Cannula 12/09 0800 94 Nasal 4.5L Cannula 12/09 0645 97.8 80 20 140/68 96 Nasal 4.5L Cannula 12/09 0000 Nasal 4.5L Cannula 12/08 2206 97.9 96 18 132/72 94 Nasal 4.5L Cannula 12/08 1941 94 Nasal 4.5L Cannula Intake & Output 12/09 1600 12/09 0800 08/27 0000 Intake Total 705 240 Output Total 550 Balance 155 240 Intake, IV 25 Intake, Oral 680 240 Output, Urine 550 Patient 146 lb Weight Weight Bed scale Measurement Method Laboratory Tests 12/09 0645 Chemistry Sodium (137 - 145 mmol/L) 137 Potassium (3.5 - 5.1 mmol/L) 4.1 Chloride (98 - 107 mmol/L) 104 Carbon Dioxide (22 - 30 mmol/L) 28 Anion Gap (5 - 16) 4 L BUN (7 - 17 mg/dL) 25 H Creatinine (0.5 - 1.0 mg/dL) 0.7 Estimated GFR (>60 ml/min) > 60 BUN/Creatinine Ratio (7 - 25 %) 35.7 H Hematology CBC w Diff NO MAN DIFF REQ WBC (4.8 - 10.8 /CUMM) 12.5 H RBC (4.20 - 5.40 /CUMM) 4.47 Hgb (12.0 - 16.0 G/DL) 13.1 Hct (37 - 47 %) 39.2 MCV (81.0 - 99.0 FL) 87.7 MCH (27.0 - 31.0 PG) 29.5 MCHC (33.0 - 37.0 G/DL) 33.6 RDW (11.5 - 14.5 %) 13.8 Plt Count (130 - 400 /CUMM) 354 MPV (7.4 - 10.4 FL) 7.2 L Gran % (42.2 - 75.2 %) 74.0 Lymphocytes % (20.5 - 51.1 %) 22.2 Monocytes % (1.7 - 9.3 %) 2.9 Eosinophils % (0 - 5 %) 0.5 Basophils % (0.0 - 2.0 %) 0.4 Absolute Granulocytes (1.4 - 6.5 /CUMM) 9.2 H Absolute Lymphocytes (1.2 - 3.4 /CUMM) 2.8 Absolute Monocytes (0.10 - 0.60 /CUMM) 0.4 Absolute Eosinophils (0.0 - 0.7 /CUMM) 0.1 Absolute Basophils (0.0 - 0.2 /CUMM) 0.1 Impression/Plan Impression/Plan Impression/Plan: CXR sig copd General Appearance Alert, Oriented X3, Cooperative Skin No Rashes, No Breakdown, multiple small pinkish macules over b/l hands, chronic HEENT Atraumatic, PERRLA, EOMI Neck Supple, No JVD, mild redness noted in orpharynx Cardiovascular Regular Rate, Normal S1, Normal S2, No Murmurs Lungs bilateral wheezing with prolonged expiration Abdomen Normal Bowel Sounds, Soft, No Tenderness Extremities No Clubbing, No Cyanosis, No Edema, Normal Pulses Vascular Normal Pulses Mrs Keys is a 77-year-old female with past medical history of polymyalgia rheumatica on chronic prednisone, [id number] smoker quit few years ago with COPD not on home oxygen, bladder cancer status post resection 2 and currently on mitomycin (6 out of 8 shots given), prior history of breast cancer status post lumpectomy and radiation on tamoxifen Issues include * Resolving Acute COPD exacerbation in the lady with severe COPD radiologically and by history, leukocytosis with yellow-green sputum. Patient is on chronic steroids for polymyalgia rheumatica and she desires for Pseudomonas however no prior history suggestive of that. No clinical vte so far ( neg doppler and low d -dimer) * Polymyalgia rheumatica on steroids hence immunosuppressed * Recent bladder malignancy, previous breast cancer on hormonal therapy with no clinical evidence suggestive of any pulmonary metastasis or malignancy so far. Prior CAT scan unremarkable for any malignancy other than emphysema. No clinical evidence suggestive of venous thromboembolism * Significant osteopenia * 3 mm lung nodule seen few months ago needs follow-up in a year in May 2018 RECOMMENDATION Continue nebulizer therapy with albuterol only every 6 hours prn Start spiriva one puff daily Symbicort 160 22 puff bid COnt steroids taper DC iv abx and change to po ceftin for two week total abx We will follow closely
[2017-12-09 22:30] VITALS: BP 102/58
--- NOTE | 2017-12-10 05:20 | Discharge Summary ---
Visit Information Visit Dates Admission Date: 12/04/17 Discharge Date: 12/17/17 Hospital Course Course Attending Physician: Melba Doss MD Primary Care Physician: Reddy Cherry MD Consulting Request: Consulting Specialty: Pulmonary Disease Consulting Physician: Dr Gomez Reason for Consult: COPD Exacerbation Hospital Course: 77 YO F with PMH of polymyalgia rheumatica on chronic prednisone, COPD not on home oxygen, bladder cancer status post resection 2 and currently on mitomycin (6 out of 8 shots given), prior history of breast cancer status post lumpectomy and radiation on tamoxifen presented to [facility] with chief complaint of worsening shortness of breath the night prior to presentation. Patient was admitted to the telemetry floor and during the course of the stay was treated for the following conditions. Acute hypoxic respiratory failure due to acute COPD exacerbation: Patient was started on IV Solu-Medrol and initially started on high flow oxygen. Pulm consult was obtained, recommended continuing antibiotics for a week( completed the course). Oxygen was gradullay tapered but patient remained on 4 L of oxygen at the time of discharge. Patient was reviewed by physical therapist found to have significant deconditioning and still requiring high amount of oxygen for this patient who does not take oxygen at home. She is being discharged to short-term rehab to continue with pulmonary rehabilitation and complete steroid taper. The senior care where the patient is going [place] is the same place that her rigging and controls aircraft mechanic Eladio Panda MD works. Patient will continue to have oxygen taper as tolerated. Sinus Tachycardia; Patient was admitted to telemetry floor bacuse of Sinus tachycardia. No arrythmias noted on the monitor and tachycardia resolved on its own. Could have been form anxiety and respiratory distress. Leukocytosis: On presentation the patient was found to have leukocytosis but there was no evidence of infection. Possibly due to steroid use. Patient remained afebrile through the course of the stay. Discharged to continue with steroid History of breast cancer status post lumpectomy and radiation; Continue tamoxifen 20 mg daily History of polymyalgia rheumatica: After finishing the prednisone taper patient advised to continue 10 mg prednisone daily which is her home dose. Complications: None Allergies: Coded Allergies: NO KNOWN ALLERGIES (NONE 09/30/17) NKA PER ANTIBIOTIC ORDER SHEET OF 01/15/13 - [facility] Significant Procedures: XRY-PORTABLE CHEST XRAY IMPRESSION: There is known emphysema. No edema. No consolidation. US-EXT BILAT VENOUS DOPPLER IMPRESSION: No evidence of deep venous thrombosis involving the bilateral lower extremities. XRY-CHEST XRAY, TWO VIEWS IMPRESSION: There are changes related to known emphysema. No acute pulmonary finding is seen. US-EXT BILAT VENOUS DOPPLER IMPRESSION: No evidence of deep venous thrombosis involving the bilateral lower extremities. Pertinent Lab Results: Laboratory Tests 12/10 0641 Chemistry Sodium (137 - 145 mmol/L) 137 Potassium (3.5 - 5.1 mmol/L) 4.2 Chloride (98 - 107 mmol/L) 105 Carbon Dioxide (22 - 30 mmol/L) 28 Anion Gap (5 - 16) 4 L BUN (7 - 17 mg/dL) 23 H Creatinine (0.5 - 1.0 mg/dL) 0.7 Estimated GFR (>60 ml/min) > 60 BUN/Creatinine Ratio (7 - 25 %) 32.9 H Hematology CBC w Diff NO MAN DIFF REQ WBC (4.8 - 10.8 /CUMM) 15.8 H RBC (4.20 - 5.40 /CUMM) 4.45 Hgb (12.0 - 16.0 G/DL) 13.0 Hct (37 - 47 %) 38.7 MCV (81.0 - 99.0 FL) 87.0 MCH (27.0 - 31.0 PG) 29.2 MCHC (33.0 - 37.0 G/DL) 33.6 RDW (11.5 - 14.5 %) 14.0 Plt Count (130 - 400 /CUMM) 371 MPV (7.4 - 10.4 FL) 7.2 L Gran % (42.2 - 75.2 %) 79.0 H Lymphocytes % (20.5 - 51.1 %) 18.4 L Monocytes % (1.7 - 9.3 %) 2.1 Eosinophils % (0 - 5 %) 0.3 Basophils % (0.0 - 2.0 %) 0.2 Absolute Granulocytes (1.4 - 6.5 /CUMM) 12.4 H Absolute Lymphocytes (1.2 - 3.4 /CUMM) 2.9 Absolute Monocytes (0.10 - 0.60 /CUMM) 0.3 Absolute Eosinophils (0.0 - 0.7 /CUMM) 0 Absolute Basophils (0.0 - 0.2 /CUMM) 0 Disposition Summary Disposition Principal Diagnosis: 1. Acute hypoxic respiratory failure due to acute COPD exacerbation Additional Diagnosis: Sinus Tachycardia Leukocytosis Polymyalgia rheumatica Discharge Disposition: SNF Discharge Instructions General Discharge Information Code Status: Full Code Patient's Diet: Regular Patient's Activity: As tolerated Follow-Up Instructions/Appts: Patient advised to follow-up with the PCP and rigging and controls aircraft mechanic within a week after discharge. Medications at Discharge Discharge Medications: Stop taking the following medications: Prednisone (Prednisone) 1 MG TABLET ORAL DAILY Continue taking these medications: Tiotropium [place] (Spiriva) 18 MCG CAP.W.DEV 1 Capsule Inhale through mouth DAILY Comments: Last Taken:12/12/17 Time:8am Tamoxifen Citrate (Tamoxifen Citrate) 20 MG TABLET 1 Tablet ORAL DAILY Comments: Last Taken:12/12/17 Time:8am Budesonide/Formoterol Fumarate (Symbicort 160-4.5 Mcg Inhaler) 160 MCG-4.5 MCG/ ACTUATION HFA.AER.AD 2 Puff Inhale through mouth TWICE DAILY Comments: Last Taken:12/12/17 Time:8am Albuterol Sulfate (Ventolin Hfa) 90 MCG HFA.AER.AD 2 Puff Inhale through mouth EVERY 4-6 HOURS NEEDED as needed for SHORTNESS OF BREATH Qty = 1 Comments: nebulizer treatments administered as needed in hospital Calcium Carbonate/Vitamin D3 (Calcium 500 + D Tablet) (Unknown Strength) TABLET Unknown Dose ORAL DAILY Comments: not taken Aspirin (Ecotrin*) 81 MG TABLET.DR 1 Tablet ORAL DAILY Comments: Last Taken:12/12/17 Time:8am Start taking the following new medications: Prednisone (Prednisone) 10 MG TABLET 0 ORAL DAILY Qty = 15 No Refills Instructions: On Take 12/18-12/19 30 MG 12/20-12/22 20 MG 12/23-12/25 10 MG THEN CONTINUE TAKING 1 mg DAILY. Comments: Last Taken:12/12/17 Time:8am Albuterol Sulfate (Albuterol Sulfate) 2.5 MG/3 ML (0.083 %) VIAL.NEB 1 Vial Inhale Solution EVERY 6 HOURS NEEDED as needed for COPD Qty = 50 No Refills Comments: use every six hours, as needed, for shortness of breath Copies To: Eladio Panda MD; Jason HAIDER,[facility]; Dilip HAIDER,Cm [facility]
[2017-12-10 06:00] VITALS: BP 150/74
--- NOTE | 2017-12-10 06:50 | Patient Discharge Instructions ---
Discharge Instructions General Discharge Information You were seen/treated for: COPD Exacerbation Watch for these problems: If you experience any worsening shortness of breath, chest tightness, dizziness, severe cough, please come back to ER. Special Instructions: Please follow up with pulmonology before May 2018 for incidental lung nodule found on imaging. Please follow up with PCP and Booster Pump Operator within a week of discharge. Diet Continue normal diet: Yes Activity Full Activity/No Limits: No Activity Self Limited: Yes Acute Coronary Syndrome Inclusion Criteria At DC or during hospital stay patient has or had the following: ACS DIAGNOSIS No Discharge Core Measures Meds if any: Prescribed or Continued at Discharge Meds if any: NOT Prescribed or Continued at Discharge Congestive Heart Failure Inclusion Criteria At DC or during hospital stay patient has or had the following: CHF DIAGNOSIS No Discharge Core Measures Meds if any: Prescribed or Continued at Discharge Meds if any: NOT Prescribed or Continued at Discharge Cerebrovascular accident Inclusion Criteria At DC or during hospital stay patient has or had the following: CVA/TIA Diagnosis No Discharge Core Measures Meds if any: Prescribed or Continued at Discharge Meds if any: NOT Prescribed or Continued at Discharge Venous thromboembolism Inclusion Criteria VTE Diagnosis No VTE Type NONE VTE Confirmed by (Test) NONE Discharge Core Measures - Per Current guidelines, there needs to be overlap - treatment for the first 5 days of Warfarin therapy. - If discharged on Warfarin prior to 5 days of - overlap therapy, the patient will need to be - assessed for post discharge needs including - *Post discharge parental anticoagulation - *Warfarin and/or parental anticoagulation education - *Follow up date to check INR post discharge At least 5 days overlap therapy as Inpatient No Meds if any: Prescribed or Continued at Discharge Note: Overlap Therapy is Warfarin and Anticoagulant Meds if any: NOT Prescribed or Continued at Discharge
--- NOTE | 2017-12-10 07:01 | PN- Housestaff ---
AbdullahiHahira 12/10/17 0701: Subjective Follow-up For: Acute hypoxic respiratory failure due to acute COPD exacerbation. Tele-Events Since Last Visit: Off tele Subjective: No overnight events. Patient remained afebrile. Seen and examined this morning. Patient denies chest pain, short of breath, nausea, vomiting, chill, fever, abdominal pain dysuria. She is using 3 L of oxygen and maintaining saturation 93%. We will try to move around and check her oxygen saturation while sitting and during ambulation. Keeping her saturation above 92%. Review of Systems Constitutional: Denies: chills, fever. EENTM: Reports: see HPI. Cardiovascular: Denies: chest pain, palpitations, syncope. Respiratory: Denies: cough, short of breath, sputum production. Gastrointestinal: Denies: abdominal pain, diarrhea, nausea, vomiting. Genitourinary: Reports: see HPI. Neurological/Psychological: Reports: see HPI. Objective Last 24 Hrs of Vital Signs/I&O Vital Signs Date Time Temp Pulse Resp B/P B/P Pulse O2 O2 Flow FiO2 Mean Ox Delivery Rate 12/10 0800 91 Nasal 3.0L Cannula 12/10 0600 98.1 78 18 150/74 93 Nasal Cannula 12/09 2230 97.6 75 16 102/58 91 Nasal Cannula 12/09 2200 Nasal 4.5L Cannula 12/09 2022 92 Nasal 4.5L Cannula 12/09 1600 98 Nasal 4.5L Cannula 12/09 1454 97.7 95 20 128/68 90 Nasal 4.0L Cannula Intake & Output 12/10 1600 12/10 0800 12/10 0000 Intake Total Output Total Balance Patient 155 lb Weight Weight Bed scale Measurement Method Physical Exam General Appearance: Alert, Oriented X3, Cooperative Skin: No Rashes Skin Temp/Moisture Exam: Warm/Dry Sepsis Skin Exam (color): Normal for Ethnicity HEENT: Atraumatic, PERRLA, EOMI Neck: Supple Cardiovascular: Normal S1, Normal S2 Lungs: b/l decreased breath sounds and wheezing Abdomen: Soft, No Tenderness Neurological: Normal Speech, Strength at 5/5 X4 Ext, Normal Tone Extremities: No Edema Assessment/Plan Assessment: 77 YO F with PMH of polymyalgia rheumatica on chronic prednisone, COPD not on home oxygen, bladder cancer status post resection 2 and currently on mitomycin (6 out of 8 shots given), prior history of breast cancer status post lumpectomy and radiation on tamoxifen came in today with chief complaint of worsening shortness of breath the night prior to presentation. We will follow the patient on telemetry floor for following problems. Acute hypoxic respiratory failure due to acute COPD exacerbation: -Continue supplemental oxygen as needed to keep her saturation more than 92%. -Patient is right now on 3 L of oxygen and maintaining saturation 93%. -Continue TRC nebulization as needed -Continue Symbicort inhaler -Patient is on quick prednisone taper. -Continue Ceftin for 7 days. -Patient will follow pulmonology rehab after discharge. -She was instructed to follow pulmonology as outpatient after the discharge. -Patient will get PT evaluation today if she qualifies for short-term rehab. Leukocytosis: -Possibly due to steroid use. -Patient remained afebrile. History of breast cancer status post lumpectomy and radiation; -Continue tamoxifen 20 mg daily History of polymyalgia rheumatica: -After the discharge patient will continue 10 mg prednisone daily. DVT prophylaxis: Mechanical and subcutaneous Lovenox. CODE STATUS: Full code Problem List: 1. COPD exacerbation 2. Acute respiratory failure with hypoxia Pain Ratin Pain Location: none Pain Goal: Remain pain free Pain Plan: pain pathway Tomorrow's Labs & Rationales: none Melba Doss MD 12/10/17 1045: Attending MD Review Statement Attending Statement Attending MD Statement: examined this patient, discuss w/resident/PA/FEDERAL JAVA DEVELOPER, agreed w/resident/PA/FEDERAL JAVA DEVELOPER, reviewed EMR data (avail), discussed with nursing, discussed with case mgmt, amended to note Attending Assessment/Plan: Patient seen and examined. Resting comfortably not in acute distress. No issues overnight. Oxygen supplementation has been weaned down to 3 L. She reports feeling better compared to presentation. Patient however continues to feel very short of breath with mild to moderate activity. Yesterday she was very adamant about going home. Today however she demonstrates significant amount of hesitancy about going home. She feels she will not be able to cope alone at home. She is inquiring into being discharged to shelter facility particularly one with pulmonary rehab capabilities. On examination she is not in any acute respiratory distress although She does appear to make some effort with breathing with prolonged conversation. She has adequate entry bilaterally with mild expiratory rhonchi. Recommendations: -Continue bronchodilator regimen. continue to taper prednisone down to her home regimen. -Complete 7 days total of antibiotic therapy. She has been switched to Ceftin. -Physical therapy evaluation. May be discharged to shelter facility once a bed becomes available and approved by her insurance carrier.
[2017-12-10] MEDS ORDERED: CEFUROXIME500 MG PO (07:37)
[2017-12-10] MEDS ORDERED: PREDNISONE10 M2 PO ×3 (07:40→11:54)
[2017-12-10 08:22] LABS: ABSOLUTE BASOPHIL COUNT 0 /CUMM (0.0-0.2); ABSOLUTE EOSINOPHIL COUNT 0 /CUMM (0.0-0.7); ABSOLUTE GRANULOCYTE CT 12.4 /CUMM (1.4-6.5); ABSOLUTE LYMPH COUNT 2.9 /CUMM (1.2-3.4); ABSOLUTE MONOCYTE COUNT 0.3 /CUMM (0.10-0.60); BASOPHIL % 0.2 % (0.0-2.0); EOSINOPHIL % 0.3 % (0-5); HEMATOCRIT 38.7 % (37-47); MEAN CORPUSCULAR HGB 29.2 PG (27.0-31.0); MEAN CORPUSCULAR HGB CONC 33.6 G/DL (33.0-37.0); MEAN PLATELET VOLUME 7.2 FL (7.4-10.4); PLATELET COUNT 371 /CUMM (130-400); RED BLOOD CELL CT 4.45 /CUMM (4.20-5.40); WHITE BLOOD CELL COUNT 15.8 /CUMM (4.8-10.8)
[2017-12-10] MEDS ORDERED: ALBUTEROL2.5 MG/3 M INH/SOL (11:53)
--- NOTE | 2017-12-10 13:25 | PN- Pulmonary ---
Subjective HPI/Critical Care Issues: Improved stable No sig cough fatigue Objective Current Medications: Current Medications Sig/Zackery Start time Last Medication Dose Route Stop Time Status Admin Acetaminophen 650 MG Q6P PRN 12/04 0900 AC PO Acetaminophen 1,000 MG Q6P PRN 12/04 0900 AC IV Albuterol Sulfate 3 ML TID 12/05 2100 AC 12/10 INH 0752 Aspirin Buffered 81 MG DAILY 12/04 1000 AC 12/10 PO 0843 Budesonide/ 2 PUF BID 12/09 2237 AC 12/10 Formoterol Fumarate INH 0844 Cefuroxime Sodium 500 MG BID 12/10 0900 AC 12/10 PO 0843 Enoxaparin Sodium 40 MG DAILY 12/04 0900 AC 12/10 SC 0844 Ipratropium [place] 2.5 ML TID 12/05 2100 DC 12/09 INH 2018 Oxycodone/ 1 TAB Q6P PRN 12/04 0900 AC Acetaminophen PO Polyethylene Glycol 17 GM DAILY 12/06 1747 AC 12/10 PO 0843 Prednisone 30 MG DAILY 12/17 0900 AC PO 12/19 0901 Prednisone 40 MG DAILY 12/14 0900 AC PO 12/16 0901 Prednisone 50 MG DAILY 12/11 0900 AC PO 12/13 0901 Prednisone 60 MG DAILY 12/08 0900 DC 12/10 PO 12/10 0901 0844 Tamoxifen Citrate 20 MG DAILY 12/04 1001 AC 12/10 PO 0843 Tiotropium [place] 1 PUF DAILY 12/10 0900 AC 12/10 INH 0844 Vital Signs & I&O Last 24 Hrs of Vitals and I&O: Vital Signs Date Time Temp Pulse Resp B/P B/P Pulse O2 O2 Flow FiO2 Mean Ox Delivery Rate 12/10 0800 91 Nasal 3.0L Cannula 12/10 0600 98.1 78 18 150/74 93 Nasal Cannula 12/09 2230 97.6 75 16 102/58 91 Nasal Cannula 12/090 Nasal 4.5L Cannula 12/09 2021 92 Nasal 4.5L Cannula 12/09 1600 98 Nasal 4.5L Cannula 12/09 1454 97.7 95 20 128/68 90 Nasal 4.0L Cannula Intake & Output 12/10 1600 12/10 0800 12/10 0000 Intake Total Output Total Balance Patient 155 lb Weight Weight Bed scale Measurement Method Impression/Plan Impression/Plan Impression/Plan: General Appearance Alert, Oriented X3, Cooperative Skin No Rashes, No Breakdown, multiple small pinkish macules over b/l hands, chronic HEENT Atraumatic, PERRLA, EOMI Neck Supple, No JVD, mild redness noted in orpharynx Cardiovascular Regular Rate, Normal S1, Normal S2, No Murmurs Lungs bilateral wheezing with prolonged expiration Abdomen Normal Bowel Sounds, Soft, No Tenderness Extremities No Clubbing, No Cyanosis, No Edema, Normal Pulses Vascular Normal Pulses Mrs Keys is a 77-year-old female with past medical history of polymyalgia rheumatica on chronic prednisone, [id number] smoker quit few years ago with COPD not on home oxygen, bladder cancer status post resection 2 and currently on mitomycin (6 out of 8 shots given), prior history of breast cancer status post lumpectomy and radiation on tamoxifen Issues include * Resolving Acute COPD exacerbation in the lady with severe COPD radiologically and by history, leukocytosis with yellow-green sputum. Patient is on chronic steroids for polymyalgia rheumatica and she desires for Pseudomonas however no prior history suggestive of that. No clinical vte so far ( neg doppler and low d -dimer) * Polymyalgia rheumatica on steroids hence immunosuppressed * Recent bladder malignancy, previous breast cancer on hormonal therapy with no clinical evidence suggestive of any pulmonary metastasis or malignancy so far. Prior CAT scan unremarkable for any malignancy other than emphysema. No clinical evidence suggestive of venous thromboembolism * Significant osteopenia * 3 mm lung nodule seen few months ago needs follow-up in a year in May 2018 RECOMMENDATION Continue nebulizer therapy with albuterol only every 6 hours prn Spiriva one puff daily Symbicort 160 22 puff bid COnt steroids taper Total abx of 7 days and dc Ok to snf To follow up with baking assistant of her choice upon dc from snf will sign off
[2017-12-10 14:48] VITALS: BP 136/58
[2017-12-10 21:09] VITALS: BP 156/60
[2017-12-11 06:35] VITALS: BP 149/65
--- NOTE | 2017-12-11 08:12 | PN- Housestaff ---
AbdullahiEdmond 12/11/17 0812: Subjective Follow-up For: Acute hypoxic respiratory failure due to acute COPD exacerbation. Tele-Events Since Last Visit: off tele Subjective: No overnight events. Patient remained afebrile overnight. Seen and examined this morning. Patient denies chest pain, nausea, vomiting, palpitation, abdominal pain and dysuria. She has intermittent cough but not able to bring any phlegm. She is on 4 L of oxygen and maintaining saturation 92%. Patient will get PT evaluation today and then if she qualifies go to short-term pulmonary rehab. Review of Systems Constitutional: Denies: chills, fever. EENTM: Reports: no symptoms. Cardiovascular: Denies: chest pain, palpitations, syncope. Respiratory: Reports: cough. Denies: sputum production. Gastrointestinal: Denies: abdominal pain, diarrhea, nausea, vomiting. Genitourinary: Reports: no symptoms. Neurological/Psychological: Reports: no symptoms. Objective Last 24 Hrs of Vital Signs/I&O Vital Signs Date Time Temp Pulse Resp B/P B/P Pulse O2 O2 Flow FiO2 Mean Ox Delivery Rate 12/11 0635 97.5 69 20 149/65 92 Room Air 12/11 0000 Nasal 4.0L Cannula 12/10 2109 97.8 88 18 156/60 90 12/10 1948 93 Nasal 4.0L Cannula 12/10 1506 Nasal 3.0L Cannula 12/10 1448 97.6 94 20 136/58 90 Nasal Cannula Intake & Output 12/11 1600 12/11 0800 12/11 0000 Intake Total Output Total Balance Patient 146 lb Weight Physical Exam General Appearance: Alert, Oriented X3, Cooperative Skin Temp/Moisture Exam: Warm/Dry Sepsis Skin Exam (color): Normal for Ethnicity HEENT: Atraumatic, PERRLA, EOMI Neck: Supple Cardiovascular: Normal S1, Normal S2 Lungs: b/l wheezing Abdomen: Soft, No Tenderness Neurological: Normal Speech, Strength at 5/5 X4 Ext, Normal Tone Extremities: No Edema Assessment/Plan Assessment: 77 YO F with PMH of polymyalgia rheumatica on chronic prednisone, COPD not on home oxygen, bladder cancer status post resection 2 and currently on mitomycin (6 out of 8 shots given), prior history of breast cancer status post lumpectomy and radiation on tamoxifen came in today with chief complaint of worsening shortness of breath the night prior to presentation. We will follow the patient on telemetry floor for following problems. Acute hypoxic respiratory failure due to acute COPD exacerbation: -Continue supplemental oxygen as needed to keep her saturation more than 92%. -Patient is right now on 4 L of oxygen and maintaining saturation 92%. -Continue TRC nebulization as needed -Continue Symbicort inhaler -Patient is on quick prednisone taper. -Completed 7 days course of antibiotics today. -Patient will follow pulmonology rehab after discharge. -She was instructed to follow pulmonology as outpatient after the discharge. -Patient will get PT evaluation today if she qualifies for short-term rehab. Patient will be discharged today. Leukocytosis: -Possibly due to steroid use. -Patient remained afebrile. History of breast cancer status post lumpectomy and radiation; -Continue tamoxifen 20 mg daily History of polymyalgia rheumatica: -After the discharge patient will continue 10 mg prednisone daily. DVT prophylaxis: Mechanical and subcutaneous Lovenox. CODE STATUS: Full code Problem List: 1. COPD exacerbation 2. Acute respiratory failure with hypoxia Pain Ratin Pain Location: none Pain Goal: Remain pain free Pain Plan: pain pathway Tomorrow's Labs & Rationales: none Selam HAIDER,Melba 12/11/17 1137: Attending MD Review Statement Attending Statement Attending MD Statement: examined this patient, discuss w/resident/PA/CORRECTIONS NURSE, agreed w/resident/PA/CORRECTIONS NURSE, reviewed EMR data (avail), discussed with nursing, discussed with case mgmt, amended to note Attending Assessment/Plan: Patient seen and examined. Resting comfortably not in any acute distress. No issues overnight. Reports feeling well this morning. Continues to require oxygen supplementation. She is on 4 L oxygen. On examination she has adequate entry bilaterally with mild rhonchi. She is medically stable to be discharged today. She will be discharged to snf facility for short-term replication and follow-up with the pulmonology service as an outpatient. She has completed her oral antibiotic course.
[2017-12-11] MEDS ORDERED: PREDNISONE10 M2 PO ×2 (10:10→10:11)
--- NOTE | 2017-12-11 10:23 | PN- Pulmonary ---
Subjective HPI/Critical Care Issues: Doing well stable afebrile Objective Current Medications: Current Medications Sig/Zackery Start time Last Medication Dose Route Stop Time Status Admin Acetaminophen 650 MG Q6P PRN 12/04 09 AC PO Acetaminophen 1,000 MG Q6P PRN 12/04 09 AC IV Albuterol Sulfate 3 ML TID 12/05 2100 AC 12/11 INH 0813 Aspirin Buffered 81 MG DAILY 12/04 1000 AC 12/11 PO 0834 Budesonide/ 2 PUF BID 12/09 2237 AC 12/11 Formoterol Fumarate INH 0826 Cefuroxime Sodium 500 MG BID 12/10 0900 DC 12/11 PO 12/11 1000 0833 Enoxaparin Sodium 40 MG DAILY 12/04 0900 AC 12/11 SC 0836 Oxycodone/ 1 TAB Q6P PRN 12/04 09 DC Acetaminophen PO Polyethylene Glycol 17 GM DAILY 12/06 1747 AC 12/11 PO 0836 Prednisone 30 MG DAILY 12/17 09 AC PO 12/19 0901 Prednisone 40 MG DAILY 12/14 09 AC PO 12/16 0901 Prednisone 50 MG DAILY 12/11 0900 AC 12/11 PO 12/13 0901 0833 Sodium Chloride 2 SPRAY Q4P PRN 12/10 2145 AC JATIN Tamoxifen Citrate 20 MG DAILY 12/04 1001 AC 12/11 PO 0839 Tiotropium [place] 1 PUF DAILY 12/10 09 AC 12/11 INH 0827 Vital Signs & I&O Last 24 Hrs of Vitals and I&O: Vital Signs Date Time Temp Pulse Resp B/P B/P Pulse O2 O2 Flow FiO2 Mean Ox Delivery Rate 12/11 0850 92 Nasal 4.0L Cannula 12/11 0635 97.5 69 20 149/65 92 Room Air 12/11 0000 Nasal 4.0L Cannula 12/10 2109 97.8 88 18 156/60 90 12/10 1948 93 Nasal 4.0L Cannula 12/10 1506 Nasal 3.0L Cannula 12/10 1448 97.6 94 20 136/58 90 Nasal Cannula Intake & Output 12/11 1600 12/11 0800 12/11 0000 Intake Total Output Total Balance Patient 146 lb Weight Impression/Plan Impression/Plan Impression/Plan: General Appearance Alert, Oriented X3, Cooperative Skin No Rashes, No Breakdown, multiple small pinkish macules over b/l hands, chronic HEENT Atraumatic, PERRLA, EOMI Neck Supple, No JVD, mild redness noted in orpharynx Cardiovascular Regular Rate, Normal S1, Normal S2, No Murmurs Lungs bilateral wheezing with prolonged expiration Abdomen Normal Bowel Sounds, Soft, No Tenderness Extremities No Clubbing, No Cyanosis, No Edema, Normal Pulses Vascular Normal Pulses Mrs Keys is a 77-year-old female with past medical history of polymyalgia rheumatica on chronic prednisone, [id number] smoker quit few years ago with COPD not on home oxygen, bladder cancer status post resection 2 and currently on mitomycin (6 out of 8 shots given), prior history of breast cancer status post lumpectomy and radiation on tamoxifen Issues include * Resolving Acute COPD exacerbation in the lady with severe COPD radiologically and by history, leukocytosis with yellow-green sputum. Patient is on chronic steroids for polymyalgia rheumatica and she is high risk for Pseudomonas however no prior history suggestive of that. No clinical vte so far ( neg doppler and low d-dimer) * Polymyalgia rheumatica on steroids hence immunosuppressed * Recent bladder malignancy, previous breast cancer on hormonal therapy with no clinical evidence suggestive of any pulmonary metastasis or malignancy so far. Prior CAT scan unremarkable for any malignancy other than emphysema. No clinical evidence suggestive of venous thromboembolism * Significant osteopenia * 3 mm lung nodule seen few months ago needs follow-up in a year in May 2018 RECOMMENDATION Continue nebulizer therapy with albuterol only every 6 hours prn Spiriva one puff daily Symbicort 160 22 puff bid COnt steroids taper and keep her on her home dose after the taper Total abx of 7 days and dc Ok to snf To follow up with sales representative printing of her choice upon dc from snf
[2017-12-11 14:25] VITALS: BP 138/62
[2017-12-11 23:24] VITALS: BP 122/62
[2017-12-12 06:30] VITALS: BP 146/80
--- NOTE | 2017-12-12 07:04 | History & Physical ---
General Information and HPI Source of Information: patient Exam Limitations: no limitations Allergies/Medications Allergies: Coded Allergies: NO KNOWN ALLERGIES (NONE 09/30/17) NKA PER ANTIBIOTIC ORDER SHEET OF 01/15/13 - [facility] Home Med list Albuterol Sulfate 2.5 MG/3 ML (0.083 %) VIAL.NEB 1 Vial INH/HAM Q6-PRN PRN COPD Albuterol Sulfate (Ventolin Hfa) 90 MCG HFA.AER.AD 2 PUF INH Q4-6 PRN PRN SHORTNESS OF BREATH Aspirin (Ecotrin*) 81 MG TABLET.DR 1 TAB PO DAILY HEART/BLOOD (Reported) Budesonide/Formoterol Fumarate (Symbicort 160-4.5 Mcg Inhaler) 160 MCG-4.5 MCG/ ACTUATION HFA.AER.AD 2 PUF INH BID COPD (Reported) Calcium Carbonate/Vitamin D3 (Calcium 500 + D Tablet) (Unknown Strength) TABLET (Unknown Dose) PO DAILY SUPPLEMENT (Reported) Prednisone 1 MG TABLET 1 MG PO DAILY STEROID (Reported) Prednisone 10 MG TABLET 0 PO DAILY PNEUMONIA On Take 12/11-12/13 50 MG 12/14-12/16 40 MG 12/17-12/19 30 MG 12/20-12/22 20 MG 12/23-12/25 10 MG THEN CONTINUE TAKING 1 mg DAILY. Tamoxifen Citrate 20 MG TABLET 1 TAB PO DAILY BREAST CANCER (Reported) Tiotropium [place] (Spiriva) 18 MCG CAP.W.DEV 1 CAP INH DAILY COPD (Reported) Compliance With Home Meds: FAIR Past History Travel History Traveled to [place] past 21 day No Medical History Neurological: NONE EENT: NONE Cardiovascular: NONE Respiratory: COPD Gastrointestinal: NONE Hepatic: NONE Renal: NONE Musculoskeletal: NONE, POLYMYALGIA RHEUMATICA Psychiatric: NONE Endocrine: NONE Blood Disorders: NONE Cancer(s): bladder cancer, hx breast ca L 13- lumpectomy, radiation STATISTICAL DEVELOPER/Reproductive: NONE Other Medical Hx: PMR History of MRSA: No History of VRE: No History of CDIFF: No Isolation History: Standard Surgical History Surgical History: BLADDER SURG FOR CA Lumpectomy on L side, deviated septum, cataract surgery ECHO Results (as available) Date of last Echo 09/24/14 EF% 60 Past Family/Social History Family History Relations & Conditions if any Relation not specified for: *No pertinent family history Psychosocial History Where do you live? Home Who Do You Live With? self Services at Home: None Primary Language: Welsh Smoking Status: Former Smoker ETOH Use: occasional use Illicit Drug Use: denies illicit drug use Functional Ability ADLs Independent: dressing, eating, toileting, bathing. Ambulation: independent IADLs Independent: shopping, housework, finances, food prep, telephone, transportation , medication admin. Exam & Diagnostic Data Diagnostic Data EKG Results Sinus tachycardia, rate of 126, QTC of 452. CXR Results chest x-ray showed known emphysema however no overt edema or consolidation was seen. Core Measures/Misc (12/30) Cerebrovascular Accident CVA/TIA Diagnosis: No VTE (View Protocol) VTE Risk Factors No risk factors Sepsis (View protocol) Sepsis Present: No If YES complete Sepsis Event Note If YES complete Sepsis Event Note
--- NOTE | 2017-12-12 07:44 | PN- Housestaff ---
Romie Mckeon 12/12/17 0744: Subjective Follow-up For: Acute hypoxic respiratory failure due to acute COPD exacerbation Complaints: no complaints Tele-Events Since Last Visit: Off telemetry Subjective: Patient seen and examined at the bedside. She remains on 4L oxygen, saturation > 92%. Pt was referred to pulmonary rehab, discussions continue between the attending physician and the insurance company. Denies any pain. Denies fever/ chills/night sweats/chest pain/abdominal pain/urinary symptoms. Review of Systems Constitutional: Denies: chills, fever. EENTM: Reports: no symptoms. Cardiovascular: Denies: chest pain, palpitations, syncope. Respiratory: Reports: short of breath. Denies: cough, sputum production. Gastrointestinal: Reports: no symptoms. Genitourinary: Reports: no symptoms. Musculoskeletal: Reports: no symptoms. Skin: Reports: no symptoms. Neurological/Psychological: Reports: no symptoms. Objective Last 24 Hrs of Vital Signs/I&O Vital Signs Date Time Temp Pulse Resp B/P B/P Pulse O2 O2 Flow FiO2 Mean Ox Delivery Rate 12/12 0815 93 Nasal 4.0L Cannula 12/12 0748 Nasal 4.0L Cannula 12/12 0630 97.8 83 18 146/80 96 Nasal 4.0L Cannula 12/11 2324 97.5 96 16 122/62 90 Room Air 12/11 2130 Nasal 4.0L Cannula 12/11 1845 92 Nasal 4.0L Cannula 12/11 1425 97.5 91 20 138/62 92 Nasal 4.0L Cannula Intake & Output 12/12 1600 12/12 0800 12/12 0000 Intake Total 120 240 Output Total Balance 120 240 Intake, Oral 120 240 Patient 145 lb Weight Physical Exam General Appearance: Alert, Oriented X3, Cooperative, No Acute Distress Skin: No Rashes, No Breakdown, No Significant Lesion Skin Temp/Moisture Exam: Warm/Dry HEENT: Atraumatic, PERRLA, EOMI, Mucous Membr. moist/pink Neck: Supple, No JVD, No thryomegaly Cardiovascular: Regular Rate, Normal S1, Normal S2, No Murmurs, Gallops, Rubs Lungs: Normal Air Movement, end expiratory wheezes, left>right Abdomen: Normal Bowel Sounds, Soft, No Tenderness, No Masses Neurological: Normal Gait, Normal Speech, Strength at 5/5 X4 Ext, Normal Tone, Sensation Intact Extremities: No Clubbing, No Cyanosis, No Edema Current Medications: Current Medications Sig/Zackery Start time Last Medication Dose Route Stop Time Status Admin Acetaminophen 650 MG Q6P PRN 12/04 899 AC PO Acetaminophen 1,000 MG Q6P PRN 12/04 09 AC IV Albuterol Sulfate 3 ML TID 12/05 2100 AC 12/12 INH 0815 Aspirin Buffered 81 MG DAILY 12/04 1000 AC 12/12 PO 0723 Budesonide/ 2 PUF BID 12/09 2237 AC 12/12 Formoterol Fumarate INH 0721 Enoxaparin Sodium 40 MG DAILY 12/04 09 AC 12/12 SC 0737 Polyethylene Glycol 17 GM DAILY 12/06 1747 AC 12/12 PO 0736 Prednisone 30 MG DAILY 12/17 09 AC PO 12/19 09 Prednisone 40 MG DAILY 12/14 09 AC PO 12/16 09 Prednisone 50 MG DAILY 12/11 09 AC 12/12 PO 12/13 0901 0735 Sodium Chloride 2 SPRAY Q4P PRN 12/10 2145 AC JATIN Tamoxifen Citrate 20 MG DAILY 12/04 1001 AC 12/12 PO 0723 Tiotropium [place] 1 PUF DAILY 12/10 0900 AC 12/12 INH 0721 Assessment/Plan Assessment: 77 YO F with PMH of polymyalgia rheumatica on chronic prednisone, COPD not on home oxygen, bladder cancer status post resection 2 and currently on mitomycin (6 out of 8 shots given), prior history of breast cancer status post lumpectomy and radiation on tamoxifen came in today with chief complaint of worsening shortness of breath the night prior to presentation. We will follow the patient on telemetry floor for following problems. Acute hypoxic respiratory failure due to acute COPD exacerbation: -Continue supplemental oxygen as needed to keep her saturation more than 92%. -Patient is right now on 4 L of oxygen and maintaining saturation >92%. -Continue TRC nebulization as needed -Continue Symbicort inhaler -Patient is on quick prednisone taper. -Completed course of antibiotics -She was instructed to follow pulmonology as outpatient after the discharge. -Patient was referred for short-term rehab. Insurance issues remain, patient likely not discharged today. Leukocytosis: -Possibly due to steroid use. -Patient remained afebrile. History of breast cancer status post lumpectomy and radiation; -Continue tamoxifen 20 mg daily History of polymyalgia rheumatica: -After the discharge patient will continue 10 mg prednisone daily. DVT prophylaxis: Subcu lovenox and ALPS Regular diet Patient is full code Problem List: 1. COPD exacerbation 2. Acute respiratory failure with hypoxia Pain Ratin Pain Location: none Pain Goal: Remain pain free Pain Plan: pain pathway Tomorrow's Labs & Rationales: none Consulting Request: Consulting Specialty: Pulmonary Disease Consulting Physician: Dr Gomez Reason for Consult: COPD Exacerbation Selam HAIDER,Melba 12/12/17 1510: Attending MD Review Statement Attending Statement Attending MD Statement: examined this patient, discuss w/resident/PA/IN CLASS SPECIAL EDUCATION TEACHER, agreed w/resident/PA/IN CLASS SPECIAL EDUCATION TEACHER, reviewed EMR data (avail), discussed with nursing, discussed with case mgmt, amended to note Attending Assessment/Plan: Patient seen and examined. Sitting in the chair. She was very short of breath. She had just come out of the bathroom. She was evaluated by the physical therapy service. She was reported to desaturate down to 84% while on 4 L of oxygen after only ambulating a short distance. She is currently too deconditioned to manage safely at home and will benefit from short-term rehabilitation for her markedly deconditioned state. Patient's insurance carrier is currently denying to pay for her stay at a assisted facility. they are recommending that she be discharged home. Discharging the patient home at this point in time will not be safe for her. There is a risk of from worsening of her respiratory failure if she does not receive adequate medical attention on time if at home alone. This was explained clearly to the medical personnel reviewing her case at the insurance company. Recommendations from the medical personnel at the insurance company are for patient to appeal her discharge with insurance company after which her case may be reevaluated. I did reiterate the risk of sequelae of worsening of her acute respiratory failure if she is discharged home and she does not receive adequate care should she deteriorate while at home. She is currently on oral steroids and has completed an antibiotic therapy. She no longer requires medical care in the hospital but will benefit from care at a assisted facility.
[2017-12-12 14:31] VITALS: BP 156/60
[2017-12-12 22:51] VITALS: BP 118/70
[2017-12-13 06:30] VITALS: BP 152/70
--- NOTE | 2017-12-13 07:21 | PN- Housestaff ---
[facility] Subjective Follow-up For: Acute hypoxic respiratory failure due to acute COPD exacerbation. Tele-Events Since Last Visit: Off tele Subjective: No overnight events. Patient remained afebrile. Seen and examined this morning. Patient is using 4 L of oxygen maintaining saturation 96%. Patient denied chest pain, palpitation, nausea, vomiting, chill, fever, abdominal pain dysuria. Patient reported having shortness of breath while walking yesterday. We will walk around today and check her saturations. Patient reported improved cough and sputum. Patient has insurance issues that is why she is staying. Review of Systems Constitutional: Denies: chills, fever. EENTM: Reports: no symptoms. Cardiovascular: Denies: chest pain, palpitations. Respiratory: Reports: short of breath. Denies: cough, sputum production. Gastrointestinal: Denies: abdominal pain, diarrhea, nausea, vomiting. Genitourinary: Reports: no symptoms. Neurological/Psychological: Reports: no symptoms. Objective Last 24 Hrs of Vital Signs/I&O Vital Signs Date Time Temp Pulse Resp B/P B/P Pulse O2 O2 Flow FiO2 Mean Ox Delivery Rate 12/13 0630 97.8 81 18 152/70 96 Nasal Cannula 12/12 2251 97.6 83 16 118/70 94 Nasal Cannula 12/12 2121 Nasal 4.0L Cannula 12/12 2010 93 Nasal 4.0L Cannula 12/12 1600 Nasal 4.0L Cannula 12/12 1431 98.1 82 20 156/60 93 Nasal 4.0L Cannula 12/12 0815 93 Nasal 4.0L Cannula 12/12 0748 Nasal 4.0L Cannula Intake & Output 12/13 0800 12/13 0000 12/12 1600 Intake Total 280 240 Output Total Balance 280 240 Intake, Oral 280 240 Patient 144 lb Weight Physical Exam General Appearance: Alert, Oriented X3, Cooperative Skin Temp/Moisture Exam: Warm/Dry Sepsis Skin Exam (color): Normal for Ethnicity HEENT: Atraumatic, PERRLA, EOMI Neck: Supple Cardiovascular: Normal S1, Normal S2 Lungs: Clear to Auscultation Abdomen: Soft, No Tenderness Neurological: Normal Speech, Strength at 5/5 X4 Ext, Normal Tone Extremities: No Edema Assessment/Plan Assessment: 77 YO F with PMH of polymyalgia rheumatica on chronic prednisone, COPD not on home oxygen, bladder cancer status post resection 2 and currently on mitomycin (6 out of 8 shots given), prior history of breast cancer status post lumpectomy and radiation on tamoxifen came in today with chief complaint of worsening shortness of breath the night prior to presentation. We will follow the patient on telemetry floor for following problems. Acute hypoxic respiratory failure due to acute COPD exacerbation: -Continue supplemental oxygen as needed to keep her saturation more than 92%. -Patient is right now on 4 L of oxygen and maintaining saturation 96%. -Continue TRC nebulization as needed -Continue Symbicort inhaler -Patient is on quick prednisone taper. -Completed 7 days course of antibiotics. -She was instructed to follow pulmonology as outpatient after the discharge. -Patient was referred for short-term rehab. Insurance issues remain that's why she is staying. Leukocytosis: -Possibly due to steroid use. -Patient remained afebrile. History of breast cancer status post lumpectomy and radiation; -Continue tamoxifen 20 mg daily History of polymyalgia rheumatica: -After the discharge patient will continue 10 mg prednisone daily. Diet: Regular diet DVT prophylaxis: Mechanical and subcutaneous Lovenox CODE STATUS CODE STATUS: Full code Problem List: 1. Acute respiratory failure with hypoxia 2. COPD exacerbation Pain Ratin Pain Location: none Pain Goal: Remain pain free Pain Plan: pain pathway Tomorrow's Labs & Rationales: none Consulting Request: Consulting Specialty: Pulmonary Disease Consulting Physician: Dr Gomez Reason for Consult: COPD Exacerbation Jodee HAIDER,Nina 12/13/17 0959: Attending MD Review Statement Attending Statement Attending MD Statement: examined this patient, discuss w/resident/PA/DIRECTOR OF FINANCE, agreed w/resident/PA/DIRECTOR OF FINANCE, reviewed EMR data (avail), discussed with nursing, discussed with case mgmt, reviewed images Attending Assessment/Plan: 77-year-old female here with acute hypoxemic respiratory failure secondary to a COPD exacerbation. Remains on oxygen with desaturation with minimal activity. At this point I think her interests are best served at rehab as her respiratory status is very fragile. Patient agrees with the same. There was a [id number] with the medical screener of the insurance company yesterday and it was denied and will need to follow-up on that.
[2017-12-13 14:38] VITALS: BP 150/60
[2017-12-13 21:24] VITALS: BP 138/58
[2017-12-14 05:54] VITALS: BP 136/80
--- NOTE | 2017-12-14 08:29 | PN- Housestaff ---
Vanessa Oliva 12/14/17 0829: Subjective Follow-up For: Acute hypoxic respiratory failure due to acute COPD exacerbation. Subjective: Afebrile overnight. Patient is seen and examined in bed this morning. Patient is on 1 L NC oxygen and states she has been having some faint clear-tinged sputum with coughs that have been present since prior. Patient otherwise denies any chest pain or shortness of breath. Patient states she has been eating well and otherwise denies any new complaints. Review of Systems Constitutional: Reports: see HPI. Objective Last 24 Hrs of Vital Signs/I&O Vital Signs Date Time Temp Pulse Resp B/P B/P Pulse O2 O2 Flow FiO2 Mean Ox Delivery Rate 12/14 0827 94 Nasal 1.0L Cannula 12/14 0554 97.7 78 20 136/80 95 Nasal Cannula 12/14 0000 Nasal 3.0L Cannula 12/13 2124 97.8 88 20 138/58 93 Nasal Cannula 12/13 1600 93 Nasal 3.0L Cannula 12/13 1438 98.4 93 18 150/60 95 Nasal 3.0L Cannula 12/13 1058 Nasal 3.0L Cannula Intake & Output 12/14 1600 12/14 0800 12/14 0000 Intake Total 150 Output Total Balance 150 Intake, Oral 150 Patient 146 lb Weight Physical Exam General Appearance: Alert, Oriented X3, Cooperative Skin: No Rashes, No Breakdown Skin Temp/Moisture Exam: Warm/Dry HEENT: Atraumatic Neck: Supple, No JVD Cardiovascular: Regular Rate, Normal S1, Normal S2 Lungs: faint wheezing and decreased breath sounds in b/l lung galarza Neurological: Normal Speech Extremities: No Edema Assessment/Plan Assessment: 77 YO F with PMH of polymyalgia rheumatica on chronic prednisone, COPD not on home oxygen, bladder cancer status post resection 2 and currently on mitomycin (6 out of 8 shots given), prior history of breast cancer status post lumpectomy and radiation on tamoxifen came in today with chief complaint of worsening shortness of breath the night prior to presentation. Acute hypoxic respiratory failure due to acute COPD exacerbation: -Continue supplemental oxygen as needed to keep her saturation more than 92%. -Patient is right now on 1.5 L of oxygen -Continue TRC nebulization as needed -Continue Symbicort inhaler -Patient is on quick prednisone taper. -Completed 7 days course of antibiotics. -She was instructed to follow pulmonology as outpatient after the discharge. -Patient was referred for short-term rehab. Insurance issues remain that's why she is staying. Leukocytosis: -Possibly due to steroid use. -Patient remained afebrile. History of breast cancer status post lumpectomy and radiation; -Continue tamoxifen 20 mg daily History of polymyalgia rheumatica: -After the discharge patient will continue 10 mg prednisone daily. Diet: Regular diet DVT prophylaxis: Mechanical and subcutaneous Lovenox CODE STATUS CODE STATUS: Full code Problem List: 1. Acute respiratory failure with hypoxia 2. COPD exacerbation Pain Ratin Pain Location: na Pain Goal: Remain pain free Pain Plan: na Tomorrow's Labs & Rationales: routine Consulting Request: Consulting Specialty: Pulmonary Disease Consulting Physician: Dr Gomez Reason for Consult: COPD Exacerbation Codi HAIDERShipman 12/14/17 1227: Subjective Complaints: no complaints Review of Systems Constitutional: Reports: see HPI. Objective Last 24 Hrs of Vital Signs/I&O Vital Signs Date Time Temp Pulse Resp B/P B/P Pulse O2 O2 Flow FiO2 Mean Ox Delivery Rate 12/14 0827 94 Nasal 1.0L Cannula 12/14 0800 Nasal 1.0L Cannula 12/14 0554 97.7 78 20 136/80 95 Nasal Cannula 12/14 0000 Nasal 3.0L Cannula 12/13 2124 97.8 88 20 138/58 93 Nasal Cannula 12/13 1600 93 Nasal 3.0L Cannula 12/13 1438 98.4 93 18 150/60 95 Nasal 3.0L Cannula Intake & Output 12/14 1600 12/14 0800 12/14 0000 Intake Total 150 Output Total Balance 150 Intake, Oral 150 Patient 146 lb Weight Physical Exam General Appearance: Alert, Oriented X3, Cooperative, No Acute Distress Skin: No Rashes, No Breakdown Skin Temp/Moisture Exam: Warm/Dry HEENT: Atraumatic, PERRLA, EOMI Neck: Supple, No JVD Cardiovascular: Regular Rate, Normal S1, Normal S2 Lungs: faint wheezing and decreased breath sounds in b/l lung galarza, Tenous breathing with conversation Abdomen: Normal Bowel Sounds, Soft, No Tenderness Neurological: Normal Gait, Normal Speech Extremities: No Edema Current Medications: Current Medications Sig/Zackery Start time Last Medication Dose Route Stop Time Status Admin Acetaminophen 650 MG Q6P PRN 12/04 0900 AC PO Acetaminophen 1,000 MG Q6P PRN 12/04 0900 AC IV Albuterol Sulfate 3 ML TID 12/05 2100 AC 12/14 INH 0823 Aspirin Buffered 81 MG DAILY 12/04 1000 AC 12/14 PO 0913 Budesonide/ 2 PUF BID 12/09 2237 AC 12/14 Formoterol Fumarate INH 0911 Enoxaparin Sodium 40 MG DAILY 12/04 0900 AC 12/14 SC 0919 Polyethylene Glycol 17 GM DAILY 12/06 1747 AC 12/14 PO 0912 Prednisone 30 MG DAILY 12/17 0900 AC PO 12/19 0901 Prednisone 40 MG DAILY 12/14 0900 AC 12/14 PO 12/16 0901 0913 Sodium Chloride 2 SPRAY Q4P PRN 12/10 2145 AC JATIN Tamoxifen Citrate 20 MG DAILY 12/04 1001 AC 12/14 PO 0913 Tiotropium [place] 1 PUF DAILY 12/10 0900 AC 12/14 INH 0911 Attending MD Review Statement Attending Statement Attending MD Statement: examined this patient, discuss w/resident/PA/INSTRUMENT ENGINEER, agreed w/resident/PA/INSTRUMENT ENGINEER Attending Assessment/Plan: This patient is a 77-year-old white female with tenuous COPD. The patient has less oxygen requirement but is still audibly short of breath with conversation and continues to have a baseline cough. The patient would be best served in a rehab center given her tenuous status and oxygen requirements.
[2017-12-14 15:01] VITALS: BP 136/63
[2017-12-14 22:10] VITALS: BP 151/63
[2017-12-15 05:56] VITALS: BP 140/78
--- NOTE | 2017-12-15 08:52 | PN- Housestaff ---
Zeke Escobar 12/15/17 0852: Subjective Follow-up For: Acute hypoxic respiratory failure secondary to COPD exacerbation Subjective: Patient seen and examined at bedside. She was complaining of mild shortness of breath she denies fever, chills, chest pain, palpitation, abdominal pain, diarrhea, constipation, burning micturition. Review of Systems Constitutional: Reports: see HPI. Objective Last 24 Hrs of Vital Signs/I&O Vital Signs Date Time Temp Pulse Resp B/P B/P Pulse O2 O2 Flow FiO2 Mean Ox Delivery Rate 12/15 1433 98.2 98 19 134/55 94 Nasal 0.5L Cannula 12/15 1313 94 Nasal 0.5L Cannula 12/15 0800 92 Nasal 0.5L Cannula 12/15 0556 98.0 87 18 140/78 92 Nasal 0.5L Cannula 12/14 2239 92 Nasal 0.5L Cannula 12/14 2210 97.9 95 18 151/63 92 Nasal 0.5L Cannula 12/14 202 92 Nasal 0.5L Cannula Intake & Output 12/15 1600 12/15 0800 12/15 0000 Intake Total 600 120 240 Output Total 600 Balance 0 120 240 Intake, Oral 600 120 240 Number 1 Bowel Movements Output, Urine 600 Physical Exam General Appearance: Alert, Oriented X3, Cooperative Cardiovascular: Normal S1, Normal S2 Lungs: Decrease air entery bileteral Abdomen: Normal Bowel Sounds, Soft, No Tenderness Assessment/Plan Assessment: 77 YO F with PMH of polymyalgia rheumatica on chronic prednisone, COPD not on home oxygen, bladder cancer status post resection 2 and currently on mitomycin (6 out of 8 shots given), prior history of breast cancer status post lumpectomy and radiation on tamoxifen came in today with chief complaint of worsening shortness of breath the night prior to presentation. Problems list; -Acute hypoxic respiratory failure due to COPD -Leukocytosis -History of polymyalgia rheumatic -History of breast cancer status post lumpectomy - Acute hypoxic respiratory failure due to acute COPD exacerbation: -Patient is on 1.5 L of oxygen which is her baseline at home -We will continue her TRC nebulization. -We will continue her oxygen to keep her saturation above 92% -We will complete her 7 days antibiotic -We will keep continue tapering her steroids(prednisone) -Patient will follow braider setter on outpatient basis -Patient referred to short-term rehab -Patient waiting due to her insurance issues otherwise she is free from medical point of view *Leukocytosis: -Possibly due to steroid use. -Patient remained afebrile. *History of breast cancer status post lumpectomy and radiation: -Lumpectomy done -She is on tamoxifen *History of polymyalgia: -We will discharge her on 10 mg prednisone daily *Regular diet DVT prophylaxis: Mechanical and subcutaneous Lovenox CODE STATUS CODE STATUS: Full code Problem List: 1. COPD exacerbation 2. Full code status 3. Acute respiratory failure with hypoxia Pain Ratin Pain Location: No pain Pain Goal: Remain pain free Pain Plan: Pain management pathway Tomorrow's Labs & Rationales: CbC Consulting Request: Consulting Specialty: Pulmonary Disease Consulting Physician: Dr Gomez Reason for Consult: COPD Exacerbation Codi HAIDERElverta 12/15/17 1112: Objective Last 24 Hrs of Vital Signs/I&O Vital Signs Date Time Temp Pulse Resp B/P B/P Pulse O2 O2 Flow FiO2 Mean Ox Delivery Rate 12/15 0556 98.0 87 18 140/78 92 Nasal 0.5L Cannula 12/14 2239 92 Nasal 0.5L Cannula 12/14 2210 97.9 95 18 151/63 92 Nasal 0.5L Cannula 12/14 2022 92 Nasal 0.5L Cannula 12/14 1501 97.9 87 16 136/63 92 Room Air 1.5L Intake & Output 12/15 1600 12/15 0800 12/15 0000 Intake Total 120 240 Output Total Balance 120 240 Intake, Oral 120 240 Physical Exam General Appearance: Alert, Oriented X3, Cooperative, No Acute Distress Skin: No Rashes, No Breakdown HEENT: Atraumatic, PERRLA, EOMI Neck: Supple Cardiovascular: Regular Rate, Normal S1, Normal S2 Lungs: distant breat sounds. Wheeze. Diffuse rhonchi Abdomen: Normal Bowel Sounds, Soft, No Tenderness Neurological: Normal Gait, Normal Speech Current Medications: Current Medications Sig/Zackery Start time Last Medication Dose Route Stop Time Status Admin Acetaminophen 650 MG Q6P PRN 12/04 899 AC PO Acetaminophen 1,000 MG Q6P PRN 12/04 899 AC IV Albuterol Sulfate 3 ML TID 12/05 2100 AC 12/15 INH 0755 Aspirin Buffered 81 MG DAILY 12/04 1000 AC 12/15 PO 0848 Budesonide/ 2 PUF BID 12/09 2237 AC 12/15 Formoterol Fumarate INH 0847 Enoxaparin Sodium 40 MG DAILY 12/04 0900 AC 12/15 SC 0848 Polyethylene Glycol 17 GM DAILY 12/06 1747 AC 12/15 PO 0848 Prednisone 30 MG DAILY 12/17 0900 AC PO 12/19 0901 Prednisone 40 MG DAILY 12/14 0900 AC 12/15 PO 12/16 09 0847 Sodium Chloride 2 SPRAY Q4P PRN 12/10 2145 AC JATIN Tamoxifen Citrate 20 MG DAILY 12/04 1001 AC 12/15 PO 0848 Tiotropium [place] 1 PUF DAILY 12/10 0900 AC 12/15 INH 0847 Attending MD Review Statement Attending Statement Attending MD Statement: examined this patient Attending Assessment/Plan: This patient is a 77-year-old white female with tenuous respiratory status. The patient has less oxygen requirement but is still audibly short of breath with conversation and continues to have a baseline cough. The patient would be best served in a rehab center given her tenuous status and oxygen requirements.
[2017-12-15 14:33] VITALS: BP 134/55
[2017-12-15 21:30] VITALS: BP 147/65
--- NOTE | 2017-12-16 08:45 | PN- Housestaff ---
Zeke Escobar 12/16/17 0844: Subjective Subjective: Patient seen and examined at bedside. She is doing good. She said she is waiting for disease case manager rn and insurance issues. She denies fever, chills, chest pain, palpitation, abdominal pain, diarrhea, constipation, micturition. Objective Last 24 Hrs of Vital Signs/I&O Vital Signs Date Time Temp Pulse Resp B/P B/P Pulse O2 O2 Flow FiO2 Mean Ox Delivery Rate 12/16 1333 97.8 88 16 132/88 92 Room Air 12/16 0902 93 Room Air 12/16 0000 Room Air 12/15 2130 97.5 77 18 147/65 93 Room Air 12/15 2010 92 Room Air 12/15 2000 94 Room Air 12/15 1600 94 Nasal 0.5L Cannula 12/15 1433 98.2 98 19 134/55 94 Nasal 0.5L Cannula Intake & Output 12/16 1600 12/16 0800 12/16 0000 Intake Total 120 Output Total Balance 120 Intake, IV Intake, Oral 120 Number 1 Bowel Movements Output, Urine Physical Exam Lungs: Clear to Auscultation, Normal Air Movement Abdomen: Normal Bowel Sounds, Soft, No Tenderness Neurological: Normal Gait, Normal Speech, Strength at 5/5 X4 Ext Extremities: No Clubbing, No Cyanosis, No Edema Assessment/Plan Assessment: 77 YO F with PMH of polymyalgia rheumatica on chronic prednisone, COPD not on home oxygen, bladder cancer status post resection 2 and currently on mitomycin (6 out of 8 shots given), prior history of breast cancer status post lumpectomy and radiation on tamoxifen came in today with chief complaint of worsening shortness of breath the night prior to presentation. Problems list; -Acute hypoxic respiratory failure due to COPD -Leukocytosis -History of polymyalgia rheumatic -History of breast cancer status post lumpectomy - Acute hypoxic respiratory failure due to acute COPD exacerbation: -Patient is on 1.5 L of oxygen which is her baseline at home -We will continue her TRC nebulization. -We will continue her oxygen to keep her saturation above 92% -We will complete her 7 days antibiotic -We will keep continue tapering her steroids(prednisone) -Patient will follow emergency response coordinator on outpatient basis -Patient referred to short-term rehab -Patient waiting due to her insurance issues otherwise she is free from medical point of view *Leukocytosis: -Possibly due to steroid use. -Patient remained afebrile. *History of breast cancer status post lumpectomy and radiation: -Lumpectomy done -She is on tamoxifen *History of polymyalgia: -We will discharge her on 10 mg prednisone daily *Regular diet *Patient waiting for case management for bed placement and rehab DVT prophylaxis: Mechanical and subcutaneous Lovenox CODE STATUS CODE STATUS: Full code Problem List: 1. Full code status 2. COPD exacerbation Pain Ratin Pain Location: No pain Pain Goal: Remain pain free Pain Plan: Pain management pathway Tomorrow's Labs & Rationales: No labs Consulting Request: Consulting Specialty: Pulmonary Disease Consulting Physician: Dr Gomez Reason for Consult: COPD Exacerbation Codi HAIDERDublin 12/16/17 1118: Subjective Follow-up For: COPD Review of Systems Constitutional: Reports: see HPI. Objective Last 24 Hrs of Vital Signs/I&O Vital Signs Date Time Temp Pulse Resp B/P B/P Pulse O2 O2 Flow FiO2 Mean Ox Delivery Rate 12/16 901 93 Room Air 12/16 0000 Room Air 12/15 2130 97.5 77 18 147/65 93 Room Air 12/15 2010 92 Room Air 12/15 2000 94 Room Air 12/15 1600 94 Nasal 0.5L Cannula 12/15 1433 98.2 98 19 134/55 94 Nasal 0.5L Cannula 12/15 1313 94 Nasal 0.5L Cannula Intake & Output 12/16 1600 12/16 0800 12/16 0000 Intake Total 120 Output Total Balance 120 Intake, IV Intake, Oral 120 Number 1 Bowel Movements Output, Urine Physical Exam General Appearance: Alert, Oriented X3, Cooperative HEENT: Atraumatic, PERRLA, EOMI Neck: Supple Cardiovascular: Regular Rate, Normal S1, Normal S2 Lungs: Clear to Auscultation (Expiratory wheeze diffuse) Current Medications: Current Medications Sig/Zackery Start time Last Medication Dose Route Stop Time Status Admin Acetaminophen 650 MG Q6P PRN 12/04 899 AC PO Acetaminophen 1,000 MG Q6P PRN 12/04 899 AC IV Albuterol Sulfate 3 ML TID 12/05 2100 AC 12/16 INH 0841 Aspirin Buffered 81 MG DAILY 12/04 1000 AC 12/16 PO 0848 Budesonide/ 2 PUF BID 12/09 2236 AC 12/16 Formoterol Fumarate INH 0849 Enoxaparin Sodium 40 MG DAILY 12/04 0900 AC 12/15 SC 0848 Polyethylene Glycol 17 GM DAILY 12/06 1747 AC 12/15 PO 0848 Prednisone 30 MG DAILY 12/17 09 AC PO 12/19 09 Prednisone 40 MG DAILY 12/14 0900 DC 12/16 PO 12/16 09 0848 Sodium Chloride 2 SPRAY Q4P PRN 12/10 2145 AC JATIN Tamoxifen Citrate 20 MG DAILY 12/04 1001 AC 12/16 PO 0848 Tiotropium [place] 1 PUF DAILY 12/10 0900 AC 12/16 INH 0849 Attending MD Review Statement Attending Statement Attending MD Statement: examined this patient, discussed with family, reviewed EMR data (avail) Attending Assessment/Plan: This patient is a 77-year-old white female with tenuous respiratory status. The patient has less oxygen requirement but is still audibly short of breath with conversation and continues to have a baseline cough. The patient would be best served in a rehab center given her tenuous status and oxygen requirements.
[2017-12-16 13:33] VITALS: BP 132/88
[2017-12-16 22:24] VITALS: BP 116/58
[2017-12-17 07:18] VITALS: BP 141/77
[2017-12-17] MEDS ORDERED: PREDNISONE10 M2 PO (09:46)
[2017-12-17 11:00] VITALS: BP 141/77
--- NOTE | 2017-12-17 12:54 | PN- Housestaff ---
Zeke Escobar 12/17/17 1253: Subjective Follow-up For: COPD exacerbation Subjective: Patient seen and examined at bedside. She was complaining of mild winding when she went to the bathroom. She denies fever, chills, chest pain, palpitation, shortness of breath, abdominal pain, diarrhea, constipation, burning micturition Review of Systems Constitutional: Reports: see HPI. Objective Last 24 Hrs of Vital Signs/I&O Vital Signs Date Time Temp Pulse Resp B/P B/P Pulse O2 O2 Flow FiO2 Mean Ox Delivery Rate 12/17 1100 97.3 86 20 141/77 12/17 0848 95 Room Air 12/17 0800 Room Air 12/17 0718 97.3 86 20 141/77 94 Room Air 12/17 0000 Room Air 12/16 2224 97.5 82 18 116/58 93 Room Air 12/16 1911 93 Room Air 12/16 1600 Room Air Room Air 12/16 1333 97.8 88 16 132/88 92 Room Air Intake & Output 12/17 1600 12/17 0800 12/17 0000 Intake Total 480 Output Total 400 Balance -400 480 Intake, Oral 480 Output, Urine 400 Physical Exam General Appearance: Alert, Oriented X3, Cooperative, No Acute Distress Cardiovascular: Normal S1, Normal S2 Lungs: Clear to Auscultation, Normal Air Movement Abdomen: Normal Bowel Sounds, Soft, No Tenderness Current Medications: Current Medications Sig/Zackery Start time Last Medication Dose Route Stop Time Status Admin Acetaminophen 650 MG Q6P PRN 12/04 899 DCD PO Acetaminophen 1,000 MG Q6P PRN 12/04 09 DCD IV Albuterol Sulfate 3 ML TID 12/05 2100 DCD 12/17 INH 0846 Aspirin Buffered 81 MG DAILY 12/04 1000 DCD 12/17 PO 0830 Budesonide/ 2 PUF BID 12/09 2237 DCD 12/17 Formoterol Fumarate INH 0829 Enoxaparin Sodium 40 MG DAILY 12/04 899 DCD 12/17 SC 0830 Polyethylene Glycol 17 GM DAILY 12/06 1747 DCD 12/15 PO 0848 Prednisone 30 MG DAILY 12/17 899 DCD 12/17 PO 12/19 0901 0830 Sodium Chloride 2 SPRAY Q4P PRN 12/10 2145 DCD JATIN Tamoxifen Citrate 20 MG DAILY 12/04 1001 DCD 12/17 PO 0830 Tiotropium [place] 1 PUF DAILY 12/10 0900 DCD 12/17 INH 0829 Assessment/Plan Assessment: 77 YO F with PMH of polymyalgia rheumatica on chronic prednisone, COPD not on home oxygen, bladder cancer status post resection 2 and currently on mitomycin (6 out of 8 shots given), prior history of breast cancer status post lumpectomy and radiation on tamoxifen came in today with chief complaint of worsening shortness of breath the night prior to presentation. Problems list; -Acute hypoxic respiratory failure due to COPD -Leukocytosis -History of polymyalgia rheumatic -History of breast cancer status post lumpectomy - Acute hypoxic respiratory failure due to acute COPD exacerbation: -Patient is on 1.5 L of oxygen which is her baseline at home -We will continue her TRC nebulization. -We will continue her oxygen to keep her saturation above 92% -We will complete her 7 days antibiotic -We will keep continue tapering her steroids(prednisone) -Patient will follow information systems security analyst on outpatient basis -Patient referred to short-term rehab -Patient bed arranged at rehab facilities she will be discharged today *Leukocytosis: -Possibly due to steroid use. -Patient remained afebrile. *History of breast cancer status post lumpectomy and radiation: -Lumpectomy done -She is on tamoxifen *History of polymyalgia: -We will discharge her on 10 mg prednisone daily *Patient discharged home today *Regular diet *Patient waiting for case management for bed placement and rehab DVT prophylaxis: Mechanical and subcutaneous Lovenox CODE STATUS CODE STATUS: Full code Problem List: 1. COPD exacerbation Pain Ratin Pain Location: No pain Pain Goal: Remain pain free Pain Plan: Pain management pathway Tomorrow's Labs & Rationales: No labs Consulting Request: Consulting Specialty: Pulmonary Disease Consulting Physician: Dr Gomez Reason for Consult: COPD Exacerbation David Tabares 12/17/17 1429: Attending MD Review Statement Attending Statement Attending MD Statement: examined this patient, discuss w/resident/PA/GREEN END WORKER, agreed w/resident/PA/GREEN END WORKER, reviewed EMR data (avail), discussed with nursing, discussed with case mgmt Attending Assessment/Plan: acute copd exacerbation- off oxygen now. Pt being dced to [facility]. See dc summary for details. tori pt the care plan
== END 2017-12-17 11:57 | DRG 190 ==
LOC: DELPENDDIS → ERH 07:01 → ERHI 08:28 → 1NO 08:28 → ENRESERV 12:00 → ENTRNSPT 14:37 → EDTRNSPT 15:09 → EDTRNSPTSTS 15:09 → 1NO 15:20 → EDTRNSPT 15:23 → CMPTRNSPT 16:07 → 1NO 20:09 → ENPENDDIS 12-11 10:38 → ENTRNSPT 12-14 21:32 → CMPTRNSPT 12-14 21:52 → 2NB 12-14 21:54 → ENPENDDIS 12-17 10:50 → 2NB 12-17 11:57
PROVIDERS: Emergency Medicine; Internal Medicine; Student in an Organized Health Care Education/Training Program
DX: J44.1 Chronic obstructive pulmonary disease with (acute) exacerbation (principal); J96.01 Acute respiratory failure with hypoxia; J44.0 Chronic obstructive pulmonary disease with (acute) lower respiratory infection; J20.9 Acute bronchitis, unspecified; Z87.891 Personal history of nicotine dependence; C67.9 Malignant neoplasm of bladder, unspecified; M85.80 Other specified disorders of bone density and structure, unspecified site; M35.3 Polymyalgia rheumatica; Z79.52 Long term (current) use of systemic steroids; Z90.6 Acquired absence of other parts of urinary tract; Z79.51 Long term (current) use of inhaled steroids; Z85.3 Personal history of malignant neoplasm of breast; Z98.49 Cataract extraction status, unspecified eye; Z79.810 Long term (current) use of selective estrogen receptor modulators (SERMs); R91.1 Solitary pulmonary nodule
CPT/HCPCS: 1NP; 2NBP; 36415; 36592; 71045; 71046; 81001; 82436; 87040; 87070; 93005; 93010; 93970; 96372; 96374; 96375; 97116-GO; 97161-GP; 97530-GO; 99291; J0131; J0456; J0696; J1650; J2920; J2930; J3490; J7040; J7512